=== PATIENT | female | born 1985 | race African-American/Black ===

== ENCOUNTER → 2017-05-10 | Outpatient (CLI) | payer OTHER ==
--- NOTE | 2017-05-10 13:36 | US ---
EXAMINATION TYPE: US OB <=14 wks transvag DATE OF EXAM: 05/10/2017 COMPARISON: NONE CLINICAL HISTORY: O46.91 Bleeding 1st trimester. Bleeding x 1 day with small clots EXAM PERFORMED: OBTA, OBTV EXAM MEASUREMENTS: GESTATIONAL AGE / DATING Physician Established: not established Dates by LMP: (10 weeks/5 days) EDC: 12/01/2017 Dates by First Scan: AUTOMATIC PRESSER Dates by Current Scan for: N/A MATERNAL ANATOMY Uterus: 7.8 x 5.3 x 4.3cm Right Ovary: 3.5 x 3.3 x 3.0cm, 2.9cm complex mass seen, possible corpus luteal versus other etiology Left Ovary: 2.5 x 1.7 x 1.7cm Post CDS / Adnexa: wnl Presence of free fluid: yes, mild within cds GESTATION / SURVEY No IUP seen at this time Endo thickness = 1.1cm Date of LMP: 02/26/2017 Beta HcG (if available): not available IMPRESSION: 1. Complex mass right ovary. 2. Intrauterine not identified. Correlation with beta-hCG and follow-up is recommended. Ect opic is not excluded. 3. Small amount of free fluid within the cul-de-sac.
== END | disposition home or self-care (01) ==
LOC: RADUSWWP 12:46
PROVIDERS: ATTEND Family Medicine
DX: O46.91 Antepartum hemorrhage, unspecified, first trimester (principal); O34.81 Maternal care for other abnormalities of pelvic organs, first trimester; N83.8 Other noninflammatory disorders of ovary, fallopian tube and broad ligament; Z3A.10 10 weeks gestation of pregnancy
CPT/HCPCS: 36415; 76801; 76817; 84702; 86850; 86900; 86901

== ENCOUNTER → 2017-08-30 | Outpatient (CLI) | payer OTHER ==
--- NOTE | 2017-09-02 08:28 | USB ---
Reason for exam: clinical finding. History: Family history of breast cancer in aunt. Indicated problem(s): lump or thickening in the left breast. Physical Findings: Nurse Summary: found lump in left 2 weeks ago, BB on area of concern (nurse kp). US Breast LT Left breast ultrasound includes all four quadrants, the retroareolar region and axilla. Finding demonstrates no cystic or solid lesion seen. These results were verbally communicated with the patient and result sheet given to the patient on 08/30/17. ASSESSMENT: Negative, BI-RAD 1 RECOMMENDATION: Routine screening mammogram of both breasts at age 40. (unless clinical indication to start sooner) Manage on a clinical basis with regard to any suspicious palpable areas.
== END | disposition home or self-care (01) ==
LOC: RADUSWWP 14:48
PROVIDERS: ATTEND Obstetrics & Gynecology
DX: N63.20 Unspecified lump in the left breast, unspecified quadrant (principal); N64.4 Mastodynia

== ENCOUNTER 2018-06-19 12:27 | Emergency (ER) | payer OTHER ==
[2018-06-19] MEDS ORDERED: SODIUM CHLORIDE 0.9% 1,000 ML IV STA (13:00)
--- NOTE | 2018-06-19 13:00 | ED ---
General Adult HPI - General Chief complaint: Arrhythmia/Palpitations Stated complaint: 26 weeks , heart racing and nosebleed Source: patient Mode of arrival: ambulatory Limitations: no limitations - History of Present Illness Initial comments: Dictation was produced using [employer] dictation software. please excuse any grammatical, word or spelling errors. Chief Complaint: 33-year-old -Filipino female who is in her fourth allegedly 26 weeks presents with palpitations, nosebleed and headache. History of Present Illness: He 33-year-old female presents with 1 episode of nosebleed, palpitations and headache. Patient states that she was at home when she began spritzing the symptoms. Says her symptoms began as nosebleed. Passive for couple minutes. Immediately after patient had sensation as her heart was pounding. She doesn't have a headache. She took some Tylenol with improvement of her symptoms. Well. She denies any, patient' s with this . This is her fourth . She states that the bleeding in her nose stopped. The ROS documented in this emergency department record has been reviewed and confirmed by me. Those systems with pertinent positive or negative responses have been documented in the HPI. All other systems are other negative and/or noncontributory. - Related Data Home Medications Medication Instructions Recorded Confirmed Acetaminophen Tab [Tylenol] 650 mg PO Q6HR PRN 06/19/18 06/19/18 Iem-Japu-Bfwuo Acid 1 cap PO HS 06/19/18 06/19/18 [-U Capsule (formulary)] Previous Rx's Medication Instructions Recorded Magnesium Oxide [Mag-Ox] 250 mg PO BID 3 Days #6 tablet 06/19/18 Sodium Chloride [Gann] 1 spray EA NOSTRIL TID #1 bottle 06/19/18 Allergies Allergy/AdvReac Type Severity Reaction Status Date / Time No Known Allergies Allergy Verified 06/19/18 13:02 Review of Systems ROS Statement: Those systems with pertinent positive or pertinent negative responses have been documented in the HPI. ROS Other: All systems not noted in ROS Statement are negative. Past Medical History Past Medical History: No Reported History History of Any Multi-Drug Resistant Organisms: None Reported Past Surgical History: No Surgical Hx Reported Past Psychological History: No Psychological Hx Reported Smoking Status: Never smoker Past Alcohol Use History: None Reported Past Drug Use History: None Reported General Exam - General Exam Comments Initial Comments: PHYSICAL EXAM: General Impression: Alert and oriented x3, not in acute distress HEENT: Normocephalic atraumatic, extra-ocular movements intact, pupils equal and reactive to light bilaterally, mucous membranes moist. Cardiovascular: Heart regular rate and rhythm, S1&S2 audible, no murmurs, rubs or gallops Chest: Lungs clear to auscultation bilaterally, no rhonchi, no wheeze, no rales Abdomen: Bowel sounds present, abdomen soft, non-tender, non-distended, no organomegaly Musculoskeletal: Pulses present and equal in all extremities, no peripheral edema Motor: Power 5/5 bilaterally, no focal deficits noted Neurological: CN II-XII grossly intact, no focal motor or sensory deficits noted Skin: Intact with no visualized rashes Psych: Normal affect and mood Limitations: no limitations Course Vital Signs 06/19/18 06/19/18 06/19/18 12:29 12:52 13:18 Temperature 98 F Pulse Rate 78 72 Pulse Rate [ 78 Physician Office Assistant ] Respiratory 18 16 Rate Blood Pressure 108/69 118/62 O2 Sat by Pulse 100 98 Oximetry 06/19/18 13:27 Temperature 98.7 F Pulse Rate 87 Pulse Rate [ Physician Office Assistant ] Respiratory 19 Rate Blood Pressure 118/67 O2 Sat by Pulse 99 Oximetry Medical Decision Making - Medical Decision Making ED course: 33-year-old female presents with a chief complaint of episode of nosebleed, palpitations and headache. She took a Tylenol with improvement of her symptoms. She is instructed by her TELECOMMUNICATIONS OFFICER to come in for medical evaluation. Vital signs upon arrival are within acceptable limits. EKGs benign. heart tones were performed by L&D nurse. heart rate was approximately 160. EKG Interpretation: A 12 lead EKG was obtained. It was interpreted by myself and attending physician. There is a P wave before every QRS complex. Rate is 73. Rhythm is normal sinus rhythm, MN interval 140, care is 86, QTC 438. QT is not prolonged. No ST segment depression or elevation.. Overall, this EKG is unremarkable Laboratory evaluation was obtained. Patient has a hemoglobin 10.2. Rest of CBC is otherwise unremarkable. Patient did have a platelet count of 102. Metabolic panel is unremarkable. Glucose 112. Magnesium is 1.5. Vital signs are within normal limits. No hypertension. She given some supplemental magnesium. Patient's clinical presentation suspicious for URI. Nosebleed likely anterior nosebleed caused by dry mucosa. Patient given Gann [place] keep the nasal mucosa moist. She is told to avoid fans. Patient also given magnesium oxide tabs to go home with. Patient told to follow-up with her primary care physician. Patient told to return to the emergency department should she have recurrent or persistent headache. Patient understandable agreeable to discharge. - Lab Data Result diagrams: 06/19/18 13:18 06/19/18 13:18 Lab Results 06/19/18 06/19/18 Range/Units :18 13:18 WBC 4.2 (3.8-10.6) k/uL RBC 3.05 L (3.80-5.40) m/uL Hgb 10.2 L (11.4-16.0) gm/dL Hct 30.3 L (34.0-46.0) % MCV 99.2 (80.0-100.0) fL MCH 33.5 (25.0-35.0) pg MCHC 33.7 (31.0-37.0) g/dL RDW 13.4 (11.5-15.5) % Plt Count 102 L (150-450) k/uL Neutrophils % 70 % Lymphocytes % 18 % Monocytes % 8 % Eosinophils % 1 % Basophils % 0 % Neutrophils # 2.9 (1.3-7.7) k/uL Lymphocytes # 0.8 L (1.0-4.8) k/uL Monocytes # 0.3 (0-1.0) k/uL Eosinophils # 0.1 (0-0.7) k/uL Basophils # 0.0 (0-0.2) k/uL Sodium 138 (137-145) mmol/L Potassium 3.6 (3.5-5.1) mmol/L Chloride 108 H (98-107) mmol/L Carbon Dioxide 22 (22-30) mmol/L Anion Gap 8 mmol/L BUN 6 L (7-17) mg/dL Creatinine 0.42 L (0.52-1.04) mg/dL Est GFR (CKD-EPI)AfAm >90 (>60 ml/min/1.73 sqM) Est GFR (CKD-EPI)NonAf >90 (>60 ml/min/1.73 sqM) Glucose 112 H (74-99) mg/dL Calcium 9.0 (8.4-10.2) mg/dL Magnesium 1.5 L (1.6-2.3) mg/dL Disposition Clinical Impression: Epistaxis Disposition: HOME SELF-CARE Condition: Good Instructions: Nosebleed (ED) Prescriptions: Magnesium Oxide [Mag-Ox] 250 mg PO BID 3 Days #6 tablet Sodium Chloride [Gann] 1 spray EA NOSTRIL TID #1 bottle Is patient prescribed a controlled substance at d/c from ED?: No Referrals: Melva Farley DO [Primary Care Provider] - 1-2 days Time of Disposition: 13:45
[2018-06-19 13:28] VITALS: BP 118/67; PULSE 87; RESP 19; TEMP 98.7
[2018-06-19 13:28] LABS: Basophils % (A) 0 %; Eosinophils # (A) 0.1 k/uL (0-0.7); Eosinophils % (A) 1 %; HCT 30.3 % (34.0-46.0); HGB 10.2 gm/dL (11.4-16.0); Lymphocytes # (A) 0.8 k/uL (1.0-4.8); Lymphocytes % (A) 18 %; MCH 33.5 pg (25.0-35.0); MCHC 33.7 g/dL (31.0-37.0); MCV 99.2 fL (80.0-100.0); Mean Platelet Volume 8.2; Monocytes # (A) 0.3 k/uL (0-1.0); Monocytes % (A) 8 %; Neutrophils # (A) 2.9 k/uL (1.3-7.7); Neutrophils % (A) 70 %; Platelet Count 102 k/uL (150-450); RBC 3.05 m/uL (3.80-5.40); RDW 13.4 % (11.5-15.5); WBC 4.2 k/uL (3.8-10.6)
[2018-06-19 13:35] LABS: Anion Gap 8 mmol/L; Blood Urea Nitrogen 6 mg/dL (7-17); Carbon Dioxide 22 mmol/L (22-30); Chloride 108 mmol/L (98-107); Glucose 112 mg/dL (74-99); Magnesium 1.5 mg/dL (1.6-2.3); Potassium 3.6 mmol/L (3.5-5.1); Sodium 138 mmol/L (137-145)
[2018-06-19] MEDS ORDERED: MAGNESIUM OXIDE 400 MG TAB PO STA (13:38)
== END 2018-06-19 13:56 | disposition home or self-care (01) ==
LOC: EC 12:27
DX: O99.89 Other specified diseases and conditions complicating pregnancy, childbirth and the puerperium (principal); R04.0 Epistaxis; R00.2 Palpitations; R51 Headache; Z3A.26 26 weeks gestation of pregnancy
CPT/HCPCS: 36415; 80048; 83735; 85025; 93005; 96360; 99285

== ENCOUNTER → 2018-07-01 | Outpatient (CLI) | payer OTHER ==
[~2018-07-01] MED LIST: AMPICILLIN 2,000 MG in SODIUM CHLORIDE 0.9% 100 ML IVPB STA; BETAMET ACET-BETAMETH SOD PHOS 6 MG/ML VIAL IM SCH; CALCIUM CHLORIDE 500 MG in SODIUM CHLORIDE 0.9% 50 ML IVPB ONE; INDOMETHACIN 25 MG CAP PO SCH; MAGNESIUM SULFATE-WATER PMX 20 GM in WATER FOR INJECTION 1 500ML.BAG IV SCH; MAGNESIUM SULFATE-WATER PMX 4 GM in WATER FOR INJECTION 1 50ML.BAG IVPB STA
[2018-07-01 21:47] VITALS: BP 126/66; PULSE 71; RESP 16; TEMP 97.9
[2018-07-01 21:55] LABS: Amorphous Sediment,Urine Few /hpf; Appearance,Urine Cloudy (Clear); Bilirubin,Urine Negative (Negative); Blood,Urine Negative (Negative); Color,Urine Light Yellow; Glucose,Urine (UA) Negative (Negative); Ketones,Urine Negative (Negative); Leukocyte Esterase,Urine Negative (Negative); Mucus,Urine Rare /hpf; Nitrite,Urine Negative (Negative); PH, Urine 6.5 (5.0-8.0); Protein,Urine Negative (Negative); Squamous Epithelial Cell,Urine 2 /hpf (0-4); Urobilinogen,Urine <2.0 mg/dL (<2.0)
[2018-07-01] MEDS: LACTATED RINGERS 1,000 ML IV SCH (22:00)
--- NOTE | 2018-07-01 23:26 | US ---
EXAMINATION TYPE: US OB >= 14 wk fetus DATE OF EXAM: 07/01/2018 COMPARISON: None CLINICAL HISTORY: 27 weeks Contractions pre term labor. TECHNIQUE: Transabdominal (TA) GESTATIONAL AGE / DATING Physician Established: (27 weeks/6 days) EDC: 09/24/2018 Dates by LMP: (27 weeks/6 days) EDC: 09/24/2018 Dates by First Scan: No previous this is first scan Dates by Current Scan: (30 weeks/1 days) EDC: 09/08/2018 SURVEY IUP: Single PLACENTA: Posterior PREVIA: No Previa ORIANA: 14.32 cm Normal CERVICAL LENGTH (transabdominal: norm > 3.0cm): 3.4 cm BIOMETRY PRESENTATION: Vertex LIE: Longitudinal BPD: 7.82 cm 31 weeks / 3 days HC: 28.58 cm 31 weeks / 3 days AC: 25.74 cm 29 weeks / 6 days FL: 5.70 cm 29 weeks / 6 days ESTIMATED WEIGHT IN GRAMS: 1521 grams ESTIMATED WEIGHT IN LBS/OZ: 3 lbs. 6 oz. WEIGHT PERCENTAGE BASED ON ESTABLISHED DATES: 97% HC/AC: 1.11cm Normal FL/AC: 22.15cm Normal HEART RATE: 142 bpm RHYTHM: Normal I see no complicating process. IMPRESSION: The estimated weight is 1521 g. I have no old exam to compare. Ultrasound gestational age is 30 weeks and 1 day. The DIANA is 09/08/2018. No complicating process.
[2018-07-02] MEDS: LACTATED RINGERS 1,000 ML IV SCH (00:10)
--- NOTE | 2018-07-02 00:35 | P.TRANS ---
Providers Expected date of discharge: 07/02/18 Attending physician: Yovani Sampson Primary care physician: Stated None Hospital Course: Hannah is a 33-year-old at 27 weeks gestation who arrives complaining of contractions. She is been followed with both myself and maternal medicine for history of labor and she has been on progesterone injections. She was seen by at [facility] approximately for 5 days ago and was told that her cervix was closed and 40% effaced. Tonight she reports that approximately 6:30 she began having some back pain and while she didn't think too much of it the pain became more intense and at 9:00 she came into labor and delivery. At that time she was dilated to approximately 2 cm 80% effaced and ballotable. A fibronectin was ordered and returned positive. I did come in prior to the labs returning to do a full assessment. Her vital signs are otherwise stable and she is afebrile. Immediately upon recognition of labor and IV was started and magnesium sulfate was initiated with a bolus of 4 g and a maintenance dose of 2 g per hour. She also received a dose of Celestone and a dose of IV antibiotics. Since the contractions were not immediately stopping the dose of Indocin 50 mg by mouth was provided as well. Contractions have decreased over the last hour to hour and a half since she's been here. Due to her severe prematurity we did speak with [facility] about a transfer. The goal will be to try and transfer her to a tertiary care center as her hospitals not equipped for a 27 week baby. Risks of transfer were reviewed with the patient. We have had her here now for 3 hours and she is made no cervical record changer tester that time and if we can continue to get her contractions spaced out than the plan will be to do the transfer. Until such time that her contractions are spaced out it makes it difficult to try and tying a transfer due to risk of delivery and route. She does have a category 1 tracing otherwise. Her contractions recently have been anywhere from 4-30 minutes apart. Patient Condition at Discharge: Stable Plan - Transfer Summary Transfer Medications: Active Medications Generic Name Dose Route Start Last Admin Trade Name Freq PRN Reason Stop Dose Admin Betamethasone Acet/Betameth SodPhos 12 mg 07/01/18 22:15 07/01/18 22:28 Celestone Soluspan IM 07/02/18 22:16 12 mg Q24H NICO Administration Lactated Ringer's 1,000 mls @ 999 mls/hr 07/01/18 21:45 07/02/18 00:10 Lactated Ringers IV Not Given .Q1H1M NICO Magnesium Sulfate 20 gm/ IV 500 mls @ 50 mls/hr 07/01/18 22:15 07/01/18 22:47 Solution IV 2 gm/hr .Q10H NICO 50 mls/hr Administration 2 GM/HR Indomethacin 50 mg 07/02/18 00:00 07/01/18 23:44 Indocin PO 50 mg QID NICO Administration - Out of Hospital Transfer - Req. Specs Out of Hospital Transfer - Requested Specifics: Neurological ICU
[2018-07-02 01:12] LABS: Basophils % (A) 0 %; Eosinophils % (A) 0 %; HCT 31.8 % (34.0-46.0); HGB 10.7 gm/dL (11.4-16.0); Lymphocytes # (A) 1.1 k/uL (1.0-4.8); Lymphocytes % (A) 21 %; MCH 34.9 pg (25.0-35.0); MCHC 33.7 g/dL (31.0-37.0); MCV 103.5 fL (80.0-100.0); Macrocytosis Slight; Mean Platelet Volume 7.5; Monocytes # (A) 0.2 k/uL (0-1.0); Monocytes % (A) 5 %; Neutrophils # (A) 3.8 k/uL (1.3-7.7); Neutrophils % (A) 73 %; Platelet Count 104 k/uL (150-450); RBC 3.07 m/uL (3.80-5.40); WBC 5.2 k/uL (3.8-10.6)
== END | disposition home or self-care (01) ==
LOC: FBPOP 20:55
PROVIDERS: ATTEND Obstetrics & Gynecology
DX: O60.03 Preterm labor without delivery, third trimester (principal); Z3A.30 30 weeks gestation of pregnancy
CPT/HCPCS: 82731; 81001; 76805; J0702; J3475 ×2; J0290; 83735; 85025; 96361; 96365; 96366; 96367; 99215

== ENCOUNTER 2018-07-15 18:37 | Outpatient (CLI) | payer OTHER ==
--- NOTE | 2018-08-07 13:01 | P.MSEPDOC ---
Presenting Problems - Arrival Data Date of Arrival on Unit: 07/15/18 Time of Arrival on Unit: 18:30 Mode of Transport: Ambulatory Disposition - Disposition Discharge Date: 07/15/18 Discharge Time: 21:15 I agree with the RN Medical Screening Exam: Yes Risk & Benefit of care provided described in d/c instruction: Yes Diagnosis: FALSE LABOR BEFORE 37 COMPLETED WEEKS OF GEST, THIRD TRI
== END 2018-07-15 21:15 | disposition home or self-care (01) ==
LOC: FBPOP 18:37
PROVIDERS: ATTEND Obstetrics & Gynecology
DX: O47.03 False labor before 37 completed weeks of gestation, third trimester (principal); Z3A.00 Weeks of gestation of pregnancy not specified
CPT/HCPCS: 59025; G0463; 99213

== ENCOUNTER 2018-07-22 16:18 | Outpatient (CLI) | payer OTHER ==
[2018-07-22 18:08] VITALS: BP 121/66; PULSE 76; RESP 15; TEMP 97.2
--- NOTE | 2018-08-08 08:49 | P.MSEPDOC ---
Presenting Problems - Arrival Data Date of Arrival on Unit: 07/22/18 Time of Arrival on Unit: 16:30 Mode of Transport: Ambulatory Vital Signs - Temperature Temperature: 97.2 F Temperature Source: Temporal Artery Scan - Pulse Brachial Pulse Rate: 76 Pulse Assessment Method: Automatic Cuff - Respirations Respiratory Rate: 15 Oxygen Delivery Method: Room Air - Blood Pressure Right Arm Sitting Blood Pressure: 121/66 Blood Pressure Mean: 84 Blood Pressure Source: Automatic Cuff Medical Screen Scoring (Post) - Cervical Exam Dilation: Exam Deferred Effacement: Exam Deferred Membranes: Intact - Uterine Contractions Frequency: N/A Duration: N/A Intensity: N/A - Maternal Vital Signs Maternal Temperature: N/A Maternal Blood Pressure: N/A Signs of Preeclampsia: N/A Maternal Respirations: N/A - Pain Assessment Pain Scale Used: Numeric (1 - 10) Pain Intensity: 0 - Assessment Heart Rate: 135 Heart Rate - NICHD Category: Category I (Normal) = 0 NST: Reactive Position: N/A Station: N/A - Total Score Total Score (Post): 0 - Post Treatment Level of Risk Post Treatment Level of Risk: Low (0-5) Physician Notification (Post) - Physician Notified Physician Notified Date: 07/22/18 Physician Notified Time: 17:05 Spoke With: Dr Sampson New Order Received: Yes - Notification Comment Comment: reported reactive NST. pt may go home per vagueda Sampson Disposition - Disposition OB Disposition: Triage Discharge Date: 07/22/18 Discharge Time: 17:10 I agree with the RN Medical Screening Exam: Yes Risk & Benefit of care provided described in d/c instruction: Yes Diagnosis: RELATED CONDITIONS, UNSPECIFIED, THIRD TRIMESTER
== END 2018-07-22 17:10 | disposition home or self-care (01) ==
LOC: FBPOP 16:18
PROVIDERS: ATTEND Obstetrics & Gynecology
DX: O26.93 Pregnancy related conditions, unspecified, third trimester (principal); Z3A.00 Weeks of gestation of pregnancy not specified
CPT/HCPCS: 59025; G0463; 99213

== ENCOUNTER 2018-08-30 08:21 | Inpatient (IN) | payer OTHER ==
[2018-08-30] MEDS ORDERED: LIDOCAINE 0.5% (PF) 5 MG/ML (50 ML SDV) SQ PRN (08:40)
[2018-08-30] MEDS ORDERED: OXYTOCIN 10 UNIT/ML 1 ML VIAL IM PRN (08:40)
[2018-08-30] MEDS ORDERED: METHYLERGONOVINE 0.2 MG/ML 1 ML AMP IM PRN (08:40)
[2018-08-30] MEDS ORDERED: TERBUTALINE 1 MG/ML VIAL SQ PRN (08:40)
[2018-08-30] MEDS ORDERED: CARBOPROST TROMETHAMINE 250 MCG/ML 1 ML AMP IM PRN (08:40)
[2018-08-30] MEDS ORDERED: OXYTOCIN 20 UNITS/1000 ML NS 1,000 ML IV SCH (08:45)
[2018-08-30] MEDS ORDERED: LACTATED RINGERS 1,000 ML IV SCH (08:45)
[2018-08-30 10:30] LABS: Basophils % (A) 0 %; Eosinophils # (A) 0.1 k/uL (0-0.7); Eosinophils % (A) 1 %; HCT 32.8 % (34.0-46.0); HGB 11.2 gm/dL (11.4-16.0); Lymphocytes # (A) 1.1 k/uL (1.0-4.8); Lymphocytes % (A) 32 %; MCH 33.7 pg (25.0-35.0); MCHC 34.2 g/dL (31.0-37.0); MCV 98.7 fL (80.0-100.0); Mean Platelet Volume 8.1; Monocytes # (A) 0.3 k/uL (0-1.0); Monocytes % (A) 8 %; Neutrophils # (A) 1.9 k/uL (1.3-7.7); Neutrophils % (A) 55 %; Platelet Count 100 k/uL (150-450); RBC 3.32 m/uL (3.80-5.40); RDW 12.6 % (11.5-15.5); WBC 3.4 k/uL (3.8-10.6)
--- NOTE | 2018-08-30 11:32 | P.HPOB ---
History of Present Illness H&P Date: 08/30/18 Chief Complaint: Spontaneous rupture of membranes This is a 33-year-old female 6 para 3 with an estimated date of confinement of 09/24/2018, estimated gestational age of 36-3/7 weeks, who presents to labor and delivery with spontaneous rupture of membranes approximate 7 AM this morning with clear fluid noted. She has been feeling irregular contractions since that time. care has been with Dr. Sampson and has been uncomplicated by labor. She was admitted to maternal medicine for 5 days a few weeks ago. She was given steroids and has been on progesterone injections up until a week ago. She also has a history of low platelets but has not needed any intervention for that. She also has a history of placenta previa that has resolved. labs: GC/chlamydia-negative Hepatitis B surface antigen-negative RPR-nonreactive Rubella-immune Blood type-O+ Antibody screen-negative HIV-nonreactive Hemoglobin-12.1 Toxoplasma-negative Random glucose-89 Group B streptococcus-negative Obstetrical history: . History of 3 vaginal deliveries. History of 1 delivery at 34 weeks and 2 deliveries at term. She also has a history of 2 miscarriages. Review of Systems Constitutional: Denies chills, Denies fever Eyes: denies blurred vision, denies pain Ears, nose, mouth and throat: Denies headache, Denies sore throat Cardiovascular: Denies chest pain, Denies shortness of breath Respiratory: Denies cough Gastrointestinal: Reports abdominal pain (Contractions) Genitourinary: Reports pelvic pain, Reports Musculoskeletal: Reports low back pain Integumentary: Denies pruritus, Denies rash Neurological: Denies numbness, Denies weakness Past Medical History Additional Past Medical History / Comment(s): Thrombocytopenia during this History of Any Multi-Drug Resistant Organisms: None Reported Past Surgical History: No Surgical Hx Reported Past Anesthesia/Blood Transfusion Reactions: No Reported Reaction Past Psychological History: No Psychological Hx Reported Smoking Status: Former smoker Past Alcohol Use History: None Reported Past Drug Use History: None Reported - Past Family History Mother Family Medical History: No Reported History Medications and Allergies Home Medications Medication Instructions Recorded Confirmed Type Sqd-[id number]-[id number] Acid 1 cap PO HS 06/19/18 08/30/18 History [-U Capsule (formulary)] Allergies Allergy/AdvReac Type Severity Reaction Status Date / Time No Known Allergies Allergy Verified 08/30/18 08:40 Exam Osteopathic Statement: *. No significant issues noted on an osteopathic structural exam other than those noted in the History and Physical/Consult. Vital Signs Temp Pulse Resp BP 08/30/18 08:39 97.1 F L 64 16 125/72 Intake and Output 08/29/18 08/30/18 08/30/18 22:59 06:59 14:59 Other: Weight 92.079 kg HEENT: Within normal limits Heart: Regular rate and rhythm Lungs: Clear to auscultation bilaterally Abdomen: Cervix: Positive clear fluid with positive amnisure. Cervix initially was 4-1/ 2 cm/80%/-2 station heart tones: Reactive Contractions: Every 2-4 minutes Extremities: Negative Homans Results Result Diagrams: 08/30/18 09:19 Abnormal Lab Results - Last 24 Hours (Table) 08/30/18 Range/Units 09:19 WBC 3.4 L (3.8-10.6) k/uL RBC 3.32 L (3.80-5.40) m/uL Hgb 11.2 L (11.4-16.0) gm/dL Hct 32.8 L (34.0-46.0) % Plt Count 100 L (150-450) k/uL Assessment and Plan (1) 36 weeks gestation of Current Visit: Yes Status: Acute Code(s): Z3A.36 - 36 WEEKS GESTATION OF SNOMED Code(s): 71852353 (2) labor in third trimester with delivery Current Visit: Yes Status: Acute Code(s): O60.14X0 - LABOR THIRD TRI W DELIVERY THIRD TRI, UNSP SNOMED Code(s): 3419745 Plan: Admission for active labor. Expectant management.
--- NOTE | 2018-08-30 12:57 | P.PROBDLV ---
Vaginal Delivery Note - . Vaginal Delivery Note: The patient progressed to complete dilation after spontaneous rupture of membranes and active labor. She did not receive anything for pain. Once reaching complete dilation, she began pushing. 's head came to a crown. One further push, the 's head delivered across the perineum followed by the anterior shoulder. Nose and mouth were bulb suctioned at the perineum. With one further push the remainder the easily delivered with reducing nuchal cord times one around the body with delivery. was placed on mother's abdomen and cord was clamped and cut. A viable male was noted with scores of 9 at 1 minute and 9 at 5 minutes. weight is pending at this time. Placenta delivered shortly thereafter, intact, with a three-vessel cord. Cord blood was obtained secondary to O+ blood type. Uterus contracted fairly well after oxytocin was given and uterine massage was carried out. Inspection of the perineum revealed a small second-degree perineal laceration. This area was anesthetized with 1% lidocaine and then sutured with 3-0 Vicryl suture in the usual multilayer fashion. Estimated blood loss is approximately 200 mL's. Both mother and infant are in stable condition.
[2018-08-30] MEDS ORDERED: diphenhydrAMINE 25 MG CAP PO PRN (13:41)
[2018-08-30] MEDS ORDERED: SIMETHICONE 80 MG CHEWABLE PO PRN (13:41)
[2018-08-30] MEDS ORDERED: HYDROCORTISONE 2.5% RECTAL CREAM 30 GM TUBE RECTAL PRN (13:41)
[2018-08-30] MEDS ORDERED: diphenhydrAMINE 50 MG CAP PO PRN (13:41)
[2018-08-30] MEDS ORDERED: WITCH HAZEL 1 EACH MED..PAD TOPICAL PRN (13:41)
[2018-08-30] MEDS ORDERED: LANOLIN CREAM 5 GM TUBE TOPICAL PRN (13:41)
[2018-08-30] MEDS ORDERED: diphenhydrAMINE 50 MG/ML 1 ML VIAL IVP PRN ×2 (13:41)
[2018-08-30] MEDS ORDERED: BENZOCAINE/MENTHOL SPRAY 1 GM/SPRAY AEROSOL TOPICAL PRN (13:41)
[2018-08-30] MEDS ORDERED: ZOLPIDEM 5 MG TAB PO PRN (13:41)
[2018-08-30] MEDS: IBUPROFEN 600 MG TAB PO PRN ×2 (14:10→20:25)
[2018-08-30] MEDS: ACETAMINOPHEN TAB 325 MG TAB PO PRN ×2 (18:52→22:33)
[2018-08-30] MEDS: SENNOSIDES-DOCUSATE SODIUM 1 EACH TAB PO SCH (20:25)
[2018-08-31] MEDS: IBUPROFEN 600 MG TAB PO PRN ×3 (04:13→22:38)
[2018-08-31 07:07] LABS: Basophils % (A) 0 %; Eosinophils # (A) 0.1 k/uL (0-0.7); Eosinophils % (A) 1 %; HCT 29.5 % (34.0-46.0); HGB 9.9 gm/dL (11.4-16.0); Lymphocytes # (A) 1.5 k/uL (1.0-4.8); Lymphocytes % (A) 22 %; MCHC 33.7 g/dL (31.0-37.0); MCV 100.8 fL (80.0-100.0); Mean Platelet Volume 8.1; Monocytes # (A) 0.6 k/uL (0-1.0); Monocytes % (A) 9 %; Neutrophils # (A) 4.4 k/uL (1.3-7.7); Neutrophils % (A) 65 %; RBC 2.93 m/uL (3.80-5.40); RDW 12.8 % (11.5-15.5); WBC 6.7 k/uL (3.8-10.6)
[2018-08-31 07:26] LABS: Platelet Count 86 k/uL (150-450)
[2018-08-31] MEDS: ACETAMINOPHEN TAB 325 MG TAB PO PRN (08:04)
[2018-08-31] MEDS: SENNOSIDES-DOCUSATE SODIUM 1 EACH TAB PO SCH ×2 (08:04→19:57)
--- NOTE | 2018-08-31 12:45 | P.PNOBGVD ---
Subjective - Subjective Principal diagnosis: Status post vaginal delivery day #1 Interval history: She is doing well. Her lochia is decreasing. Her pain is fairly well controlled with oral pain medication. She is breast-feeding. Patient reports: Reports appetite normal, Reports voiding normally, Reports pain well controlled, Reports ambulating normally [place]: doing well, nursing well Objective - Latest Vital Signs Latest vital signs: Vital Signs Temp Pulse Resp BP Pulse Ox 08/31/18 08:00 98.1 F 61 14 106/68 08/31/18 00:00 98 F 71 15 113/63 98 08/30/18 20:00 98 F 69 15 121/76 08/30/18 15:41 96.9 F L 73 16 115/59 08/30/18 15:00 97.6 F 67 16 110/60 08/30/18 14:30 70 14 122/72 08/30/18 13:58 75 14 118/73 08/30/18 13:42 64 16 110/69 08/30/18 13:30 69 16 115/73 08/30/18 13:12 80 16 111/68 08/30/18 13:00 97.1 F L 69 16 111/78 Intake and Output 08/30/18 08/31/18 08/31/18 22:59 06:59 14:59 Other: # Voids 1 - Exam Extremities: Present: normal. Absent: tenderness Abdomen: Present: normal appearance, soft. Absent: distention, tenderness Uterus: Present: normal, firm. Absent: tenderness - Labs Labs: Abnormal Lab Results - Last 24 Hours (Table) 08/31/18 Range/Units 06:47 RBC 2.93 L (3.80-5.40) m/uL Hgb 9.9 L (11.4-16.0) gm/dL Hct 29.5 L (34.0-46.0) % MCV 100.8 H (80.0-100.0) fL Plt Count 86 L (150-450) k/uL Assessment and Plan Assessment: Status post vaginal delivery day #1 (1) 36 weeks gestation of Current Visit: Yes Status: Acute Code(s): Z3A.36 - 36 WEEKS GESTATION OF SNOMED Code(s): 62038948 (2) labor in third trimester with delivery Current Visit: Yes Status: Acute Code(s): O60.14X0 - LABOR THIRD TRI W DELIVERY THIRD TRI, UNSP SNOMED Code(s): 7017377 Plan: Will continue with care today since baby does need to stay 1 more day per pediatrics. Anticipate discharge home tomorrow.
[2018-09-01] MEDS: IBUPROFEN 600 MG TAB PO PRN ×2 (06:32→19:38)
[2018-09-01] MEDS: SENNOSIDES-DOCUSATE SODIUM 1 EACH TAB PO SCH ×2 (08:00→21:22)
--- NOTE | 2018-09-01 08:40 | P.DS ---
Providers Date of admission: 08/30/18 08:21 Expected date of discharge: 09/01/18 Attending physician: Yovani Sampson Primary care physician: Stated None Hospital Course: Patient is doing very well post day 2. She is ambulating, voiding, and she is tolerating her diet. She voices no complaints. Vital signs are stable and afebrile. Heart regular, lungs clear, extremities without pain. Abdomen is soft uterus is firm and lochia is reported be light. Assessment post day 2. Plan discharged home follow up with me in 6 weeks. Prescription for Motrin and a breast pump were provided. Patient Condition at Discharge: Good Plan - Discharge Summary Discharge Rx Participant: No New Discharge Prescriptions: New Ibuprofen [Motrin] 600 mg PO Q6HR PRN #30 tab PRN Reason: Pain No Action [id number] Acid [-U Capsule (formulary)] 1 cap PO HS Discharge Medication List [id number]-Shjz-Notpw Acid [-U Capsule (formulary)] 1 cap PO HS [History] Ibuprofen [Motrin] 600 mg PO Q6HR PRN #30 tab 09/01/18 [Rx] Follow up Appointment(s)/Referral(s): Yovani Sampson DO [Doctor of Osteopathic Medicine] - 6 Weeks Activity/Diet/Wound Care/Special Instructions: No heavy lifting, limit stairs and driving, and pelvic rest. If any high temperatures, heavy bleeding, or severe pain call my office Discharge Disposition: HOME SELF-CARE
[2018-09-01] MEDS: ACETAMINOPHEN TAB 325 MG TAB PO PRN (10:35)
[2018-09-01 11:24] VITALS: RESP 18
[2018-09-01 14:01] VITALS: BMI 34.8
[2018-09-01 17:15] VITALS: BP 117/69; PULSE 72; TEMP 98.7
== END 2018-09-01 21:10 | disposition home or self-care (01) | DRG 806 ==
LOC: 4FBP 08:21
PROVIDERS: ADMIT Obstetrics & Gynecology; ATTEND Obstetrics & Gynecology
PROC: 10E0XZZ Delivery of Products of Conception, External Approach (ICD-10-PCS; principal; 2018-08-30)
PROC: 0KQM0ZZ Repair Perineum Muscle, Open Approach (ICD-10-PCS; 2018-08-30)
DX: O60.14X0 Preterm labor third trimester with preterm delivery third trimester, not applicable or unspecified (principal); O44.02 Complete placenta previa NOS or without hemorrhage, second trimester; Z37.0 Single live birth; Z3A.36 36 weeks gestation of pregnancy; O69.81X0 Labor and delivery complicated by cord around neck, without compression, not applicable or unspecified; O70.1 Second degree perineal laceration during delivery; Z87.891 Personal history of nicotine dependence; Z83.3 Family history of diabetes mellitus; Z82.49 Family history of ischemic heart disease and other diseases of the circulatory system; Z82.0 Family history of epilepsy and other diseases of the nervous system
CPT/HCPCS: 85025; 86850; 86900; 86901; 88307

== ENCOUNTER → 2019-11-25 | Outpatient (CLI) | payer MEDICAID ==
--- NOTE | 2019-11-25 08:53 | US ---
EXAMINATION TYPE: US pelvic complete DATE OF EXAM: 11/25/2019 COMPARISON: NONE CLINICAL HISTORY: R10.2 pelvic pain. Patient feels pressure in her pelvis TECHNIQUE: TA. Transabdominal sonographic images of the pelvis were acquired. Date of LMP: 11/18/2019 EXAM MEASUREMENTS: Uterus: 9.2 x 5.0 x 3.7 cm Endometrial Stripe: 0.8 cm Right Ovary: 2.1 x 2.4 x 2.0 cm Left Ovary: 3.2 x 2.2 x 2.3 cm 1. Uterus: Anteverted wnl 2. Endometrium: wnl 3. Right Ovary: follicles seen 4. Left Ovary: 2.0cm simple appearing cyst 5. Bilateral Adnexa: wnl 6. Posterior cul-de-sac: wnl Urinary bladder is sonolucent. Posterior wall is normal. IMPRESSION: 1. Left renal cyst. Follow-up in 6 weeks or following the next normal menstrual period is recommended .
== END | disposition home or self-care (01) ==
LOC: RADUSWWP 08:07
PROVIDERS: ATTEND Obstetrics & Gynecology
DX: N28.1 Cyst of kidney, acquired (principal)
CPT/HCPCS: 76856

== ENCOUNTER → 2020-05-11 | Outpatient (CLI) | payer MEDICAID, OTHER ==
--- NOTE | 2020-05-11 15:33 | US ---
EXAMINATION TYPE: Transabdominal DATE OF EXAM: 05/11/2020 12:58 PM COMPARISON: NONE CLINICAL HISTORY: Z36 Confirm dates. EXAM PERFORMED: Transabdominal (TA) EXAM MEASUREMENTS: GESTATIONAL AGE / DATING Physician Established: Not yet established ( weeks/ days) EDC: Dates by LMP: (3 weeks/2 days) EDC: 01/23/2021 Dates by First Scan: No previous. Dates by Current Scan for: (7 weeks/0 days) EDC: 12/28/2020 MATERNAL ANATOMY Uterus: 9.7 x 6.9 x 5.9cm Right Ovary: 2.0 x 1.5 x 1.4cm Left Ovary: 3.2 x 2.3 x 2.1cm Post CDS / Adnexa: small amount of free fluid in posterior cul de sac = 1.6 x 0.4 x 0.4cm Presence of free fluid: no Presence of corpus luteal cyst: in left ovary = 1.3 x 0.9 x 1.1cm Presence of subchorionic bleed: yes, small amount of free fluid is seen subchorionically = 2.4 x 2.3 x 1.2cm. GESTATION / SURVEY CRL: 0.9cm (7 weeks/0 days) Yolk Sac (normal less than 6mm): 3.4mm Heart Rate: 142 bpm Rhythm: Normal IUP: Single, IUP Date of LMP: 04/18/2020 Beta HcG (if available): NA Single, live IUP, 7 weeks/0 days, EDC: 12/28/2020, HR 142bpm; presence of small subchorionic bleed. IMPRESSION: 1. Single Judet gestation estimated at 7 weeks 0 days gestation based on the crown-rump length. Cardi ac activity measures 142 bpm. 2. Subchorionic hemorrhage measuring 2.4 x 2.3 x 1.2 cm.
== END | disposition home or self-care (01) ==
LOC: RADUSWWP 12:18
PROVIDERS: ATTEND Obstetrics & Gynecology
DX: Z36.89 Encounter for other specified antenatal screening (principal); O20.9 Hemorrhage in early pregnancy, unspecified; Z3A.01 Less than 8 weeks gestation of pregnancy
CPT/HCPCS: 76801

== ENCOUNTER → 2020-05-19 | Outpatient (CLI) | payer MEDICAID, OTHER ==
[2020-05-19 14:55] LABS: HCT 35.5 % (34.0-46.0); HGB 11.5 gm/dL (11.4-16.0); MCHC 32.4 g/dL (31.0-37.0); MCV 98.7 fL (80.0-100.0); Mean Platelet Volume 8.2; Platelet Count 149 k/uL (150-450); RDW 12.2 % (11.5-15.5); WBC 4.3 k/uL (3.8-10.6)
[2020-05-19 19:03] LABS: African American GFR (CKD) 138.8 (60.0-200.0); Non-African American GFR(CKD) 119.8 (60.0-200.0)
[2020-05-19 19:36] LABS: Hepatitis B Surface Antigen Non-Reactive (Non-Reactive)
[2020-05-19 20:23] LABS: HIV 2 AB Non-Reactive (Non-Reactive); HIV AB P24 Non-Reactive (Non-Reactive); HIV P24 AG Non-Reactive (Non-Reactive)
== END | disposition home or self-care (01) ==
LOC: LABWHC1 14:32
PROVIDERS: ATTEND Obstetrics & Gynecology
DX: Z34.81 Encounter for supervision of other normal pregnancy, first trimester (principal); Z3A.00 Weeks of gestation of pregnancy not specified
CPT/HCPCS: 36415; 82565; 82947; 85027; 86762; 86780; 86850; 86900; 86901; 87340; 87390

== ENCOUNTER → 2020-08-01 | Outpatient (CLI) | payer MEDICAID, OTHER ==
[2020-08-02 11:46] LABS: Alpha Fetoprotein 91.9 ng/mL; Alpha Fetoprotein (M.O.M) 2.26; B-HCG (M.O.M.) 2.45; Gestational Age (days) 5; Human Chorionic Gonadotropin 53.1 IU/mL; Inhibin A (M.O.M.) 0.72; Interpretation SeeBelow; Maternal Age at EDD (Yrs) 33; Smoker No; Unconjugated Estriol (M.O.M.) 0.92
== END | disposition home or self-care (01) ==
LOC: LABWHC1 10:04
PROVIDERS: ATTEND Obstetrics & Gynecology
DX: Z34.82 Encounter for supervision of other normal pregnancy, second trimester (principal)
CPT/HCPCS: 36415; 82105; 82677; 84702; 86336

== ENCOUNTER → 2020-10-04 | Outpatient (CLI) | payer MEDICAID, OTHER ==
[2020-10-04 12:10] LABS: HCT 34.6 % (34.0-46.0); HGB 11.5 gm/dL (11.4-16.0); MCH 34.2 pg (25.0-35.0); MCHC 33.3 g/dL (31.0-37.0); MCV 102.9 fL (80.0-100.0); Macrocytosis Slight; Platelet Count 135 k/uL (150-450); RBC 3.36 m/uL (3.80-5.40); RDW 13.5 % (11.5-15.5); WBC 5.2 k/uL (3.8-10.6)
== END | disposition home or self-care (01) ==
LOC: LABWHC1 10:17
PROVIDERS: ATTEND Obstetrics & Gynecology
DX: Z34.82 Encounter for supervision of other normal pregnancy, second trimester (principal)
CPT/HCPCS: 36415; 82950; 85027

== ENCOUNTER → 2020-10-10 | Outpatient (CLI) | payer MEDICAID, OTHER ==
[2020-10-10 12:14] LABS: Glucose 3 Hour, Gest 99 mg/dL
== END | disposition home or self-care (01) ==
LOC: LABWHC1 07:37
PROVIDERS: ATTEND Obstetrics & Gynecology
DX: O99.810 Abnormal glucose complicating pregnancy (principal); Z3A.00 Weeks of gestation of pregnancy not specified
CPT/HCPCS: 36415; 82951; 82952

== ENCOUNTER 2020-10-31 18:07 | Outpatient (CLI) | payer MEDICAID, OTHER ==
[2020-10-31 19:27] VITALS: BP 126/73; PULSE 77; RESP 16; TEMP 97.6
--- NOTE | 2020-11-01 05:07 | P.MSEPDOC ---
Presenting Problems - Arrival Data Date of Arrival on Unit: 10/31/20 Time of Arrival on Unit: 18:07 Mode of Transport: Ambulatory - Complaint OB-Reason for Admission/Chief Complaint: Possible Onset of Labor Comment: patient came n to triage stating she has been ashleigh since she has seen Dr. Sampson earlier today. Patient states that she has a history of labor with all of her other pregnancies. Medical History - Information : 5 Para: 4 Term: 0 : 4 Abortions: Spontaneous or Elective: 0 Number of Living Children: 4 - Gestational Age Gestational Age by DIANA (wks/days): 31 Weeks and 5 Days Review of Systems - Review of Systems Constitutional: No problems Breast: No problems ENT: No problems Cardiovascular: No problems Respiratory: No problems Gastrointestinal: No problems Genitourinary: No problems Musculoskeletal: No problems Neurological: No problems Skin: No problems Vital Signs - Temperature Temperature: 97.6 F Temperature Source: Temporal Artery Scan - Pulse Right Brachial Pulse Rate: 77 Pulse Assessment Method: Automatic Cuff - Respirations Respiratory Rate: 16 Oxygen Delivery Method: Room Air - Blood Pressure Right Arm Blood Pressure: 126/73 Blood Pressure Mean: 90 Blood Pressure Source: Automatic Cuff Medical Screen Scoring (Pre) - Cervical Exam Dilation: Exam Deferred Effacement: Exam Deferred Membranes: Intact - Uterine Contractions Frequency: N/A Duration: N/A Intensity: N/A - Maternal Vital Signs Maternal Temperature: N/A Maternal Blood Pressure: N/A Signs of Preeclampsia: N/A Maternal Respirations: N/A - Maternal Trauma Maternal Trauma: N/A - Assessment - Baby A Baseline FHR: 135 Heart Rate - NICHD Category: Category I (Normal) = 0 NST: Reactive Position: N/A Station: N/A - Total Score - Baby A Total Score - Baby A: 0 - Total Score - Baby B Total Score - Baby B: 0 - Total Score - Baby C Total Score - Baby C: 0 - Level of Risk - Baby A Level of Risk - Baby A: Low (0-5) - Level of Risk - Baby B Level of Risk - Baby B: Low (0-5) - Level of Risk - Baby C Level of Risk - Baby C: Low (0-5) Physician Notification (Pre) - Physician Notified Physician Notified Date: 10/31/20 Physician Notified Time: 18:58 - Notification Comment Comment: ARNIE Bender spoke with Dr. Rondon, no further orders, patient approved for discharge. Disposition - Disposition OB Disposition: Discharge to home Discharge Date: 10/31/20 Discharge Time: 19:08 I agree with the RN Medical Screening Exam: Yes Case reviewed; plan agreed upon as documented in EMR&OBIX.: Yes Diagnosis: FALSE LABOR, UNSPECIFIED
== END 2020-10-31 19:08 | disposition home or self-care (01) ==
LOC: FBPOP 18:07
PROVIDERS: ATTEND Obstetrics & Gynecology
DX: Z53.9 Procedure and treatment not carried out, unspecified reason (principal)

== ENCOUNTER 2020-11-14 10:49 | Outpatient (CLI) | payer MEDICAID, OTHER ==
[2020-11-14 11:09] VITALS: BP 115/67; PULSE 71; RESP 17; TEMP 98.1
--- NOTE | 2020-11-14 12:14 | US ---
EXAMINATION TYPE: US OB BPP wo non-stress DATE OF EXAM: 11/14/2020 COMPARISON: NONE CLINICAL HISTORY: 35-year-old female history of deliveries. EXAM PERFORMED: Transabdominal (TA) FINDINGS: BPP PARAMETERS: PRESENTATION: Vertex LIE: Longitudinal?? HEART RATE: 130 bpm RHYTHM: Normal ORIANA: 13.1cm DIAPHRAGM IMAGED: yes BPP SCORING (based on industrial psychology professor real-time scanning): 1. Breathin (1 episode of breathing of 30 second duration in 30 minutes of scanning time) 2. Movement: 2 (at least 3 discrete body movements in 30 minutes) 3. Tone: 2 (1 episode of active flexion/extension of limb) 4. ORIANA: 2 (ORIANA index > 5cm) TOTAL SCORE: 8 / 8 IMPRESSION: 1. biophysical profile score of 8/8. 2. heart rate 130 BPM. ORIANA 13.1 cm. Cephalic positioning. 3. Growth, anatomy, and placenta not assessed.
--- NOTE | 2020-11-19 14:50 | P.MSEPDOC ---
Presenting Problems - Arrival Data Date of Arrival on Unit: 11/14/20 Time of Arrival on Unit: 10:49 Mode of Transport: Portable Vital Signs - Temperature Temperature: 98.1 F Temperature Source: Oral - Pulse Right Brachial Pulse Rate: 71 Pulse Assessment Method: Automatic Cuff - Respirations Respiratory Rate: 17 Oxygen Delivery Method: Room Air O2 Sat by Pulse Oximetry: 98 - Blood Pressure Right Arm Blood Pressure: 115/67 Blood Pressure Mean: 83 Blood Pressure Source: Automatic Cuff Disposition - Disposition Discharge Date: 11/14/20 Discharge Time: 11:53 I agree with the RN Medical Screening Exam: Yes Case reviewed; plan agreed upon as documented in EMR&OBIX.: Yes Diagnosis: RELATED CONDITIONS, UNSPECIFIED, THIRD TRIMESTER
== END 2020-11-14 11:53 | disposition home or self-care (01) ==
LOC: FBPOP 10:49
PROVIDERS: ATTEND Obstetrics & Gynecology
DX: O26.93 Pregnancy related conditions, unspecified, third trimester (principal); Z3A.00 Weeks of gestation of pregnancy not specified
CPT/HCPCS: 76819

== ENCOUNTER → 2020-11-22 | Outpatient (CLI) | payer MEDICAID, OTHER ==
[2020-11-22 11:07] VITALS: BP 118/63; PULSE 70; RESP 18; TEMP 98.2
--- NOTE | 2020-11-22 12:29 | US ---
EXAMINATION TYPE: US OB BPP wo non-stress DATE OF EXAM: 11/22/2020 COMPARISON: NONE CLINICAL HISTORY: hx of deliveries x 3.. BBP EXAM PERFORMED: Transabdominal (TA) BPP PARAMETERS: HEART RATE: 170 bpm RHYTHM: Normal ORIANA: 9.5 cm DIAPHRAGM IMAGED: Yes BPP SCORIN. Breathin (1 episode of breathing of 30 second duration in 30 minutes of scanning time) 2. Movement: 2 (at least 3 discrete body movements in 30 minutes) 3. Tone: 2 (1 episode of active flexion/extension of limb) 4. ORIANA: 2 (ORIANA index > 5cm) TOTAL SCORE: 8 / 8 Patient received 8/8 score ORIANA is measuring 9.5 cm. IMPRESSIONS: 1. Biophysical profile scoring 8 out of 8. 2. Cardiac activity measures 170 bpm.
== END | disposition home or self-care (01) ==
LOC: FBPOP 10:29
PROVIDERS: ATTEND Obstetrics & Gynecology
DX: Z34.83 Encounter for supervision of other normal pregnancy, third trimester (principal); Z3A.35 35 weeks gestation of pregnancy
CPT/HCPCS: 76819

== ENCOUNTER 2020-11-30 11:52 | Outpatient (CLI) | payer MEDICAID, OTHER ==
--- NOTE | 2020-11-30 15:51 | US ---
EXAMINATION TYPE: US OB BPP wo non-stress DATE OF EXAM: 11/30/2020 COMPARISON: NONE CLINICAL HISTORY: History delivery 33 weeks. EXAM PERFORMED: Transabdominal (TA) BPP PARAMETERS: HEART RATE: 134 bpm RHYTHM: Normal ORIANA: 10.9cm DIAPHRAGM IMAGED: yes BPP SCORIN. Breathin (1 episode of breathing of 30 second duration in 30 minutes of scanning time) 2. Movement: 2 (at least 3 discrete body movements in 30 minutes) 3. Tone: 2 (1 episode of active flexion/extension of limb) 4. ORIANA: 2 (ORIANA index > 5cm) TOTAL SCORE: 8 / 8
== END 2020-11-30 13:27 | disposition home or self-care (01) ==
LOC: FBPOP 11:52
PROVIDERS: ATTEND Obstetrics & Gynecology
DX: O09.893 Supervision of other high risk pregnancies, third trimester (principal); Z3A.36 36 weeks gestation of pregnancy; Z87.891 Personal history of nicotine dependence
CPT/HCPCS: 59025; 76819

== ENCOUNTER 2020-12-01 16:29 | Outpatient (CLI) | payer MEDICAID, OTHER ==
[2020-12-01 18:53] VITALS: BP 132/81; PULSE 80; RESP 16; TEMP 97.3
--- NOTE | 2020-12-02 07:33 | P.MSEPDOC ---
Presenting Problems - Arrival Data Date of Arrival on Unit: 12/01/20 Time of Arrival on Unit: 16:29 Mode of Transport: Ambulatory - Complaint OB-Reason for Admission/Chief Complaint: Possible Onset of Labor Comment: Contractions since 1200, more regular for last 2 hours Medical History - Information : 8 Para: 4 Term: 2 : 2 Abortions: Spontaneous or Elective: 3 Number of Living Children: 4 - Gestational Age Gestational Age by DIANA (wks/days): 36 Weeks and 1 Days - History Complications: Prior Review of Systems - Review of Systems Constitutional: No problems Breast: No problems ENT: No problems Cardiovascular: No problems Respiratory: No problems Gastrointestinal: No problems Genitourinary: No problems Musculoskeletal: No problems Neurological: No problems Skin: No problems Vital Signs - Temperature Temperature: 97.3 F Temperature Source: Temporal Artery Scan - Pulse Right Sitting Brachial Pulse Rate: 80 Pulse Assessment Method: Automatic Cuff - Respirations Respiratory Rate: 16 Oxygen Delivery Method: Room Air O2 Sat by Pulse Oximetry: 98 - Blood Pressure Right Arm Sitting Blood Pressure: 132/81 Blood Pressure Mean: 98 Blood Pressure Source: Automatic Cuff Medical Screen Scoring (Pre) - Cervical Exam Dilation: 1-3 cm = 1 Effacement: More than 50% = 2 Membranes: Intact - Uterine Contractions Frequency: > 5 minutes apart = 1 Duration: > 40 seconds = 2 Intensity: N/A - Maternal Vital Signs Maternal Temperature: N/A Maternal Blood Pressure: N/A Signs of Preeclampsia: N/A Maternal Respirations: N/A - Maternal Trauma Maternal Trauma: N/A - Assessment - Baby A Baseline FHR: 140 Heart Rate - NICHD Category: Category I (Normal) = 0 NST: Reactive Position: N/A Station: N/A - Total Score - Baby A Total Score - Baby A: 6 - Total Score - Baby B Total Score - Baby B: 6 - Total Score - Baby C Total Score - Baby C: 6 - Level of Risk - Baby A Level of Risk - Baby A: Medium (6-9) - Level of Risk - Baby B Level of Risk - Baby B: Medium (6-9) - Level of Risk - Baby C Level of Risk - Baby C: Medium (6-9) Physician Notification (Pre) - Physician Notified Physician Notified Date: 12/01/20 Physician Notified Time: 17:50 New Order Received: Yes - Notification Comment Comment: Spk c\Dr. Leonard, advsd pt of Dr. Sampson's, , 38 10/13, Hx of PTL, contractions since 1200, working on med/surg floor on feet, contrx 1-4 min apart on arrival, currently 2-10min, SVE 2.5/80/-3, minimal change after 1 hour. Orders rec'd to watch another hour if pt prefers, d/c c\no change in SVE or pt may be d/c home now. Pt elected to be watched anouther hour, no change in SVE, d/c home c\instructions. To follow up as scheduled. Disposition - Disposition OB Disposition: Discharge to home, Written follow up instructions reviewed Discharge Date: 12/01/20 Discharge Time: 18:45 I agree with the RN Medical Screening Exam: Yes Case reviewed; plan agreed upon as documented in EMR&OBIX.: Yes Diagnosis: FALSE LABOR BEFORE 37 COMPLETED WEEKS OF GEST, THIRD TRI
== END 2020-12-01 18:45 | disposition home or self-care (01) ==
LOC: FBPOP 16:29
PROVIDERS: ATTEND Obstetrics & Gynecology
DX: O47.03 False labor before 37 completed weeks of gestation, third trimester (principal); Z3A.36 36 weeks gestation of pregnancy
CPT/HCPCS: 59025; 99213

== ENCOUNTER 2020-12-12 11:56 | Outpatient (CLI) | payer MEDICAID, OTHER ==
[2020-12-12 13:29] VITALS: BP 136/86; PULSE 84; RESP 18; TEMP 97.2
--- NOTE | 2020-12-12 15:38 | US ---
EXAMINATION TYPE: US OB BPP wo non-stress DATE OF EXAM: 12/12/2020 COMPARISON: 11/30/2020 CLINICAL HISTORY: 35-year-old female abnormal quad. EXAM PERFORMED: Transabdominal (TA). Real-time ultrasound assessment of the biophysical profile by cassie rich senior construction estimator. Selective images were saved. FINDINGS: BPP PARAMETERS: PRESENTATION: Vertex HEART RATE: 143 bpm RHYTHM: Normal ORIANA: 11.3cm DIAPHRAGM IMAGED: yes BPP SCORIN. Breathin (1 episode of breathing of 30 second duration in 30 minutes of scanning time) 2. Movement: 2 (at least 3 discrete body movements in 30 minutes) 3. Tone: 2 (1 episode of active flexion/extension of limb) 4. ORIANA: 2 (ORIANA index > 5cm) IMPRESSION: Biophysical profile TOTAL SCORE: 8 / 8
== END 2020-12-12 13:15 | disposition home or self-care (01) ==
LOC: FBPOP 11:56
PROVIDERS: ATTEND Obstetrics & Gynecology
DX: O26.893 Other specified pregnancy related conditions, third trimester (principal); Z3A.36 36 weeks gestation of pregnancy; Z87.891 Personal history of nicotine dependence
CPT/HCPCS: 59025; 76819; 99213

== ENCOUNTER 2020-12-20 11:59 | Outpatient (CLI) | payer MEDICAID, OTHER ==
--- NOTE | 2020-12-20 13:06 | US ---
EXAMINATION TYPE: US OB BPP wo non-stress DATE OF EXAM: 12/20/2020 COMPARISON: Multiple prev Biophysicals CLINICAL HISTORY: abnormal quad. H/O deliveries EXAM PERFORMED: Transabdominal (TA) BPP PARAMETERS: PRESENTATION: Vertex HEART RATE: 132 bpm RHYTHM: Normal ORIANA: 10.5 DIAPHRAGM IMAGED: Yes BPP SCORIN. Breathin (1 episode of breathing of 30 second duration in 30 minutes of scanning time) 2. Movement: 2 (at least 3 discrete body movements in 30 minutes) 3. Tone: 2 (1 episode of active flexion/extension of limb) 4. ORIANA: 2 (ORIANA index > 5cm) TOTAL SCORE: 8 / 8 Results given to L&D at time of exam
[2020-12-20 13:33] VITALS: BP 121/65; PULSE 70; RESP 16; TEMP 98.2
== END 2020-12-20 13:05 | disposition home or self-care (01) ==
LOC: FBPOP 11:59
PROVIDERS: ATTEND Obstetrics & Gynecology
DX: O26.899 Other specified pregnancy related conditions, unspecified trimester (principal); Z3A.00 Weeks of gestation of pregnancy not specified
CPT/HCPCS: 59025; 76819

== ENCOUNTER 2020-12-27 06:15 | Inpatient (IN) | payer MEDICAID, OTHER ==
[2020-12-27] MEDS ORDERED: LIDOCAINE 0.5% (PF) 5 MG/ML (50 ML SDV) SQ PRN (07:23)
[2020-12-27] MEDS ORDERED: TERBUTALINE 1 MG/ML VIAL SQ PRN (07:23)
[2020-12-27] MEDS ORDERED: OXYTOCIN 10 UNIT/ML 1 ML VIAL IM PRN (07:23)
[2020-12-27] MEDS ORDERED: METHYLERGONOVINE 0.2 MG/ML 1 ML AMP IM PRN (07:23)
[2020-12-27] MEDS ORDERED: CARBOPROST TROMETHAMINE 250 MCG/ML 1 ML AMP IM PRN (07:23)
[2020-12-27] MEDS: LACTATED RINGERS 1,000 ML IV SCH ×2 (07:37→09:57)
[2020-12-27] MEDS: OXYTOCIN 30 UNITS/500 ML NS 30 UNIT in SALINE 1 500ML.BAG IV SCH ×2 (07:37→11:24)
[2020-12-27 07:51] LABS: Basophils % (A) 0 %; Eosinophils % (A) 1 %; HCT 35.3 % (34.0-46.0); HGB 12.5 gm/dL (11.4-16.0); Lymphocytes # (A) 1.1 k/uL (1.0-4.8); Lymphocytes % (A) 23 %; MCH 35.3 pg (25.0-35.0); MCHC 35.4 g/dL (31.0-37.0); MCV 99.7 fL (80.0-100.0); Mean Platelet Volume 7.4; Monocytes # (A) 0.4 k/uL (0-1.0); Monocytes % (A) 8 %; Neutrophils # (A) 3.3 k/uL (1.3-7.7); Neutrophils % (A) 67 %; Platelet Count 120 k/uL (150-450); RBC 3.54 m/uL (3.80-5.40); RDW 12.5 % (11.5-15.5); WBC 4.9 k/uL (3.8-10.6)
[2020-12-27 07:58] VITALS: RESP 16
[2020-12-27] MEDS ORDERED: diphenhydrAMINE 50 MG CAP PO PRN (10:43)
[2020-12-27] MEDS ORDERED: ZOLPIDEM 5 MG TAB PO PRN (10:43)
[2020-12-27] MEDS ORDERED: diphenhydrAMINE 50 MG/ML 1 ML VIAL IVP PRN ×2 (10:43)
[2020-12-27] MEDS ORDERED: LANOLIN CREAM 5 GM TUBE TOPICAL PRN (10:43)
[2020-12-27] MEDS ORDERED: diphenhydrAMINE 25 MG CAP PO PRN (10:43)
[2020-12-27] MEDS ORDERED: SIMETHICONE 80 MG CHEWABLE PO PRN (10:43)
[2020-12-27] MEDS ORDERED: ACETAMINOPHEN TAB 325 MG TAB PO PRN (10:43)
[2020-12-27] MEDS ORDERED: HYDROCORTISONE 2.5% RECTAL CREAM 30 GM TUBE RECTAL PRN (10:43)
[2020-12-27] MEDS ORDERED: BENZOCAINE/MENTHOL SPRAY 1 GM/SPRAY AEROSOL TOPICAL PRN (10:43)
--- NOTE | 2020-12-27 10:46 | P.HPOB ---
History of Present Illness H&P Date: 12/27/20 Chief Complaint: at term: Induction of labor Patient is a 35-year-old G3 8 P4 at 39 weeks gestation arise for induction of labor. Her course has remained unremarkable and she was feeling well at this time. She does have a history of delivery and was therefore treated with [place] but she did very well with this treatment and it was stopped at 35 weeks. She did receive nonstress tests and biophysical profiles through the latter part of the . Pertinent labs O+ blood type, Rh and it was negative, rubella is immune, hepatitis B surface antigen/RPR/HIV group B strep were negative. She is dilated 4 cm artificial rupture membranes was performed and clear fluid is noted. heart tones show a category 1 tracing. She wants an epidural for analgesia and we will plan Pitocin augmentation of labor Past Medical History Past Medical History: No Reported History Additional Past Medical History / Comment(s): Thrombocytopenia during this History of Any Multi-Drug Resistant Organisms: None Reported Past Surgical History: No Surgical Hx Reported Past Anesthesia/Blood Transfusion Reactions: No Reported Reaction Past Psychological History: No Psychological Hx Reported Smoking Status: Former smoker Past Alcohol Use History: None Reported Past Drug Use History: None Reported - Past Family History Mother Family Medical History: No Reported History Medications and Allergies Home Medications Medication Instructions Recorded Confirmed Type Wad-Mjcs-Auoyp Acid 1 cap PO HS MDD 1 tab 06/19/18 12/27/20 History [-U Capsule (formulary)] Allergies Allergy/AdvReac Type Severity Reaction Status Date / Time adhesive tape AdvReac Rash/Hives Verified 12/27/20 07:23 Exam Osteopathic Statement: *. No significant issues noted on an osteopathic structural exam other than those noted in the History and Physical/Consult. Vital Signs Temp Pulse Resp BP Pulse Ox 12/27/20 07:56 97.8 F 86 16 136/85 99 Intake and Output 12/26/20 12/27/20 12/27/20 22:59 06:59 14:59 Other: Weight 90.265 kg - OBG Physical Exam Breast: both: normal (no masses) Abdomen: bowel sounds normal, no diffuse tenderness, no bruit present, no guarding noted, no hepatomegaly, no splenomegaly, no mass Vulva: both: normal Vagina: normal moisture, no discharge Cervix: no lesion, no discharge Uterus: normal size, normal contour Adnexa: both: normal Anus/Rectum: normal perianal skin, no rectal mass, no hemorrhoids, heme negative Results Result Diagrams: 12/27/20 07:10 Abnormal Lab Results - Last 24 Hours (Table) 12/27/20 Range/Units 07:10 RBC 3.54 L (3.80-5.40) m/uL MCH 35.3 H (25.0-35.0) pg Plt Count 120 L (150-450) k/uL
--- NOTE | 2020-12-27 10:48 | P.PROBDLV ---
Vaginal Delivery Note - . Vaginal Delivery Note: Patient progressed complete and pushed with spontaneous vaginal delivery of a viable female over a second-degree perineal laceration. Following delivery of the head from left occiput anterior position anterior posterior shoulders were easily delivered with compound hand noted. Once baby was fully delivered mouth nares were bulb suctioned and baby was placed on mother's abdomen where the umbilical cord was allowed to pulsate for 30 seconds prior to clamping and cutting. Once this was completed her prescription personnel was present and assumed care. Placenta was then delivered intact and Pitocin was added to the IV. Immediately brisk bleeding was noted coming from the vagina. Secondary perineal laceration was identified and repaired with 3-0 Vicryl following 1% Xylocaine for analgesia. Spiked Pitocin treatment bleeding persisted and due to concern over hemorrhage Methergine IM was given. Bleeding did at this point start to diminish. We did have the operating room on standby for an exam under anesthesia but with bleeding now much better controlled we'll plan to monitor closely for now. She is stable and other than mild lightheadedness does feel well. It is noted that her platelets were 120 this morning. Prescription 9 and 9 at one and 5 minutes just Jevon and the weight was 7 lbs. 11 oz. She did progress rapidly and delivered very rapidly going from 4 to complete and approximately 20 minutes based on nurse's inform ation.
[2020-12-27] MEDS: IBUPROFEN 600 MG TAB PO SCH ×3 (10:56→18:42)
--- NOTE | 2020-12-27 17:14 | P.PN ---
Progress Note - Text Progress Note Date: 12/27/20 Debo is seen and evaluated. She continues to have lightheadedness with ambulation. Vital signs are however stable and she is currently afebrile. She voices no other complaints. A stat CBC has been ordered. We did discuss the possibility of blood products should her hemoglobin be significantly decreased at this time she is not interested in those but will wait CBC result. All the questions are answered for her at this time. Lochia is reported to be light and she has had no other significant bleeding the last several hours.
[2020-12-27 17:31] LABS: Basophils % (A) 0 %; Eosinophils % (A) 1 %; HCT 29.6 % (34.0-46.0); HGB 10.5 gm/dL (11.4-16.0); Lymphocytes # (A) 1.2 k/uL (1.0-4.8); Lymphocytes % (A) 19 %; MCH 35.4 pg (25.0-35.0); MCHC 35.6 g/dL (31.0-37.0); MCV 99.5 fL (80.0-100.0); Mean Platelet Volume 8.8; Monocytes # (A) 0.5 k/uL (0-1.0); Monocytes % (A) 8 %; Neutrophils # (A) 4.8 k/uL (1.3-7.7); Neutrophils % (A) 72 %; Platelet Count 104 k/uL (150-450); RBC 2.97 m/uL (3.80-5.40); RDW 12.5 % (11.5-15.5); WBC 6.7 k/uL (3.8-10.6)
[2020-12-27] MEDS: SENNOSIDES-DOCUSATE SODIUM 1 EACH TAB PO SCH (19:38)
[2020-12-28] MEDS: IBUPROFEN 600 MG TAB PO SCH ×4 (00:45→18:49)
[2020-12-28] MEDS: SENNOSIDES-DOCUSATE SODIUM 1 EACH TAB PO SCH ×2 (08:40→19:27)
--- NOTE | 2020-12-28 10:30 | P.DS ---
Providers Date of admission: 12/27/20 06:47 Expected date of discharge: 12/28/20 Attending physician: Yovani Sampson Primary care physician: Stated None Hospital Course: Hannah is doing very well day 1. She is ambulating, voiding and tolerating her diet. She voices no complaints and the lightheadedness from yesterday's completely resolved. No signs or symptoms of hypovolemia. We'll plan discharged home today and follow-up with me in 6 weeks. Vital signs are otherwise stable. He is afebrile. Heart regular, lungs clear, extremities are without pain. Abdomen soft uterus is firm and lochia is reported to be light. Assessment day 1. Plan discharged home follow me in 6 weeks. Prescription for Motrin has been provided. Patient Condition at Discharge: Good Plan - Discharge Summary New Discharge Prescriptions: New Ibuprofen [Motrin] 600 mg PO Q6HR PRN #30 tab PRN Reason: Pain No Action Piv-Dosu-Euhdr Acid [-U Capsule (formulary)] 1 cap PO HS MDD 1 tab Discharge Medication List Btd-Mwbh-Rgpiu Acid [-U Capsule (formulary)] 1 cap PO HS MDD 1 tab 06/19/18 [History] Ibuprofen [Motrin] 600 mg PO Q6HR PRN #30 tab 12/28/20 [Rx] Follow up Appointment(s)/Referral(s): Yovani Sampson DO [Doctor of Osteopathic Medicine] - 6 Weeks Activity/Diet/Wound Care/Special Instructions: No Heavy lifting, limit stairs and driving, and pelvic rest. If any high temperatures, heavy bleeding, or severe pain call my office Discharge Disposition: HOME SELF-CARE
[2020-12-29] MEDS: IBUPROFEN 600 MG TAB PO SCH ×3 (06:56→13:59)
[2020-12-29 08:06] VITALS: BP 126/70; PULSE 65; TEMP 99
[2020-12-29] MEDS: SENNOSIDES-DOCUSATE SODIUM 1 EACH TAB PO SCH (08:11)
--- NOTE | 2020-12-29 08:59 | P.DS ---
Providers Date of admission: 12/27/20 06:47 Expected date of discharge: 12/29/20 Attending physician: Yovani Sampson Primary care physician: Stated None Hospital Course: Just and stayed yesterday as her baby had jaundice. No changes from discharge dictation her instructions all questions answered. She is stable for discharge today. Patient Condition at Discharge: Good Plan - Discharge Summary New Discharge Prescriptions: New Ibuprofen [Motrin] 600 mg PO Q6HR PRN #30 tab PRN Reason: Pain No Action Opl-Ozsb-Djryk Acid [-U Capsule (formulary)] 1 cap PO HS MDD 1 tab Discharge Medication List Syo-Lend-Dqspc Acid [-U Capsule (formulary)] 1 cap PO HS MDD 1 tab 06/19/18 [History] Ibuprofen [Motrin] 600 mg PO Q6HR PRN #30 tab 12/28/20 [Rx] Follow up Appointment(s)/Referral(s): Yovani Sampson DO [Doctor of Osteopathic Medicine] - 6 Weeks Activity/Diet/Wound Care/Special Instructions: No Heavy lifting, limit stairs and driving, and pelvic rest. If any high temperatures, heavy bleeding, or severe pain call my office Discharge Disposition: HOME SELF-CARE
== END 2020-12-29 15:30 | disposition home or self-care (01) | DRG 806 ==
LOC: 4FBP 06:47
PROVIDERS: ADMIT Obstetrics & Gynecology; ATTEND Obstetrics & Gynecology
PROC: 10907ZC Drainage of Amniotic Fluid, Therapeutic from Products of Conception, Via Natural or Artificial Opening (ICD-10-PCS; principal; 2020-12-27)
PROC: 0KQM0ZZ Repair Perineum Muscle, Open Approach (ICD-10-PCS; principal; 2020-12-27)
PROC: 10E0XZZ Delivery of Products of Conception, External Approach (ICD-10-PCS; principal; 2020-12-27)
PROC: 3E033VJ Introduction of Other Hormone into Peripheral Vein, Percutaneous Approach (ICD-10-PCS; principal; 2020-12-27)
DX: O70.1 Second degree perineal laceration during delivery (principal); O99.12 Other diseases of the blood and blood-forming organs and certain disorders involving the immune mechanism complicating childbirth; Z37.0 Single live birth; D69.6 Thrombocytopenia, unspecified; Z3A.39 39 weeks gestation of pregnancy; Z87.891 Personal history of nicotine dependence; Z88.8 Allergy status to other drugs, medicaments and biological substances
CPT/HCPCS: 85025; 86850; 86900; 86901

== ENCOUNTER → 2021-08-02 | Outpatient (CLI) | payer MEDICAID, OTHER | END | disposition home or self-care (01) | LOC: LABMAIN 21:07 | PROVIDERS: ATTEND Emergency Medicine | DX: Z03.818 Encounter for observation for suspected exposure to other biological agents ruled out (principal); Z20.822 Contact with and (suspected) exposure to COVID-19 | CPT/HCPCS: 87635 ==

== ENCOUNTER 2021-11-28 12:22 | Emergency (ER) | payer MEDICAID, OTHER ==
[2021-11-28 12:48] VITALS: BP 128/81; PULSE 58; RESP 16; TEMP 98.4
--- NOTE | 2021-11-28 13:18 | ED ---
General Adult HPI - General Chief complaint: Skin/Abscess/Foreign Body Stated complaint: infection in foot Time Seen by Provider: 11/28/21 12:49 Source: patient, RN notes reviewed Mode of arrival: ambulatory Limitations: no limitations - History of Present Illness Initial comments: This a 36-year-old female presents emergency from chief complaint of infection to her right foot. She states that she stepped on a toy a few days ago noticed a sorenesslower redness last night her foot but seemed to increase today. Patient was seen in urgent care and sent over to return for evaluation. Patient denies fevers chills night sweats no associated pain denies being diabetic denies taking any medications. - Related Data Home Medications Medication Instructions Recorded Confirmed Eoj-Goqw-Wdvog Acid 1 cap PO HS MDD 1 tab 06/19/18 12/27/20 [-U Capsule (formulary)] Previous Rx's Medication Instructions Recorded Ibuprofen [Motrin] 600 mg PO Q6HR PRN #30 tab 12/28/20 Cephalexin [Keflex] 500 mg PO Q6HR #40 cap 11/28/21 Sulfamethox-Tmp 800-160Mg [Bactrim 1 each PO Q12HR #20 tab 11/28/21 Ds] Allergies Allergy/AdvReac Type Severity Reaction Status Date / Time adhesive tape AdvReac Rash/Hives Verified 11/28/21 12:48 Review of Systems ROS Statement: Those systems with pertinent positive or pertinent negative responses have been documented in the HPI. ROS Other: All systems not noted in ROS Statement are negative. Past Medical History Past Medical History: No Reported History Additional Past Medical History / Comment(s): Thrombocytopenia during this History of Any Multi-Drug Resistant Organisms: None Reported Past Surgical History: No Surgical Hx Reported Past Anesthesia/Blood Transfusion Reactions: No Reported Reaction Past Psychological History: No Psychological Hx Reported Smoking Status: Former smoker Past Alcohol Use History: None Reported Past Drug Use History: None Reported - Past Family History Mother Family Medical History: No Reported History General Exam Limitations: no limitations General appearance: alert, in no apparent distress Head exam: Present: atraumatic, normocephalic, normal inspection Eye exam: Present: normal appearance, PERRL, EOMI. Absent: scleral icterus, conjunctival injection, periorbital swelling ENT exam: Present: normal exam, normal oropharynx, mucous membranes moist Neck exam: Present: normal inspection, full ROM. Absent: tenderness, meningismus, lymphadenopathy Respiratory exam: Present: normal lung sounds bilaterally. Absent: respiratory distress, wheezes, rales, rhonchi, stridor Cardiovascular Exam: Present: regular rate, normal rhythm, normal heart sounds. Absent: systolic murmur, diastolic murmur, rubs, gallop, clicks Extremities exam: Present: other (Right foot nontender, neurovascular intact there is some erythema or change from the distal fifth metatarsal region streaks to the medial aspect of her foot into the distal leg nontender, no abscess noted) Course Vital Signs 11/28/21 12:46 Temperature 98.4 F Pulse Rate 58 L Respiratory 16 Rate Blood Pressure 128/81 O2 Sat by Pulse 99 Oximetry Medical Decision Making - Medical Decision Making 36-year-old female presented for infection to her right foot. Patient symptoms to starting last 24 hours. She is afebrile with no risk factors. There is no gas formation on x-ray I do believe the patient may be started on oral antibiotics with strict return parameters patient agrees this plan. Disposition Clinical Impression: Acute lymphangitis of right foot Disposition: HOME SELF-CARE Condition: Stable Instructions (If sedation given, give patient instructions): Lymphangitis (ED) Additional Instructions: Please return to the Emergency Department if symptoms worsen or any other concerns. Prescriptions: Sulfamethox-Tmp 800-160Mg [Bactrim Ds] 1 each PO Q12HR #20 tab Cephalexin [Keflex] 500 mg PO Q6HR #40 cap Is patient prescribed a controlled substance at d/c from ED?: No Referrals: None,Stated [Primary Care Provider] - 1-2 days Time of Disposition: 13:48
--- NOTE | 2021-11-28 13:36 | XR ---
EXAMINATION TYPE: XR foot complete RT DATE OF EXAM: 11/28/2021 COMPARISON: NONE HISTORY: 36-year-old female increasing right foot pain and redness since slipping on a toy, 1 week ag o. TECHNIQUE: 3 views FINDINGS: Bipartite tibial sesamoid. Type II accessory navicular. No acute fracture, subluxation, or dislocatio n. IMPRESSION: No acute osseous abnormality seen.
== END 2021-11-28 14:14 | disposition home or self-care (01) ==
LOC: EC 12:22
DX: L03.125 Acute lymphangitis of right lower limb (principal); Z87.891 Personal history of nicotine dependence; Z91.048 Other nonmedicinal substance allergy status
CPT/HCPCS: 99283

== ENCOUNTER 2023-01-10 20:12 | Emergency (ER) | payer MEDICAID, OTHER ==
[2023-01-10 20:23] VITALS: BP 131/98; PULSE 64; RESP 18; TEMP 98.1
[2023-01-10] MEDS ORDERED: SODIUM CHLORIDE 0.9% 1,000 ML IV STA (20:53)
[2023-01-10] MEDS ORDERED: ONDANSETRON 4 MG/2 ML VIAL IVP STA (20:53)
[2023-01-10] MEDS ORDERED: KETOROLAC 15 MG/ML 1 ML VIAL IVP STA ×2 (20:53→23:01)
--- NOTE | 2023-01-10 21:24 | ED ---
Abdominal Pain HPI - General Chief Complaint: Abdominal Pain Stated Complaint: abd pain Time Seen by Provider: 01/10/23 20:27 Source: patient, RN notes reviewed Mode of arrival: ambulatory Limitations: no limitations - History of Present Illness Initial Comments: This is a 37-year-old female who presents to the emergency department for abdominal pain. States that yesterday she developed right lower quadrant abdominal pain. This has since started to wrap around to the right lower back. Today, she started to develop pain going up towards the right upper quadrant. Reports a history of problems with her gallbladder, however this is never in the lower abdomen as well and the pain feels different. She has nausea but no vomiting. Denies any changes in bowel or bladder habits. Denies any fevers, chills, sore throat, cough, dyspnea, chest pain, palpitations, vomiting, diarrhea, or headaches. MD Complaint: abdominal pain Onset/Timin -: days(s) Location: RLQ Radiation: RUQ, back Associated Symptoms: nausea - Related Data Home Medications Medication Instructions Recorded Confirmed Burn Evolved (Weight Loss 2 cap PO TID 01/10/23 01/10/23 Supplement) Previous Rx's Medication Instructions Recorded Cephalexin [Keflex] 500 mg PO Q12HR 7 Days #14 cap 01/10/23 Allergies Allergy/AdvReac Type Severity Reaction Status Date / Time adhesive tape AdvReac Rash/Hives Verified 01/10/23 21:51 Review of Systems ROS Statement: Those systems with pertinent positive or pertinent negative responses have been documented in the HPI. ROS Other: All systems not noted in ROS Statement are negative. Past Medical History Past Medical History: No Reported History Additional Past Medical History / Comment(s): Thrombocytopenia during this p regnancy History of Any Multi-Drug Resistant Organisms: None Reported Past Surgical History: No Surgical Hx Reported Past Anesthesia/Blood Transfusion Reactions: No Reported Reaction Past Psychological History: No Psychological Hx Reported Smoking Status: Former smoker Past Alcohol Use History: None Reported Past Drug Use History: None Reported - Past Family History Mother Family Medical History: No Reported History General Exam Limitations: no limitations General appearance: alert, in no apparent distress Head exam: Present: atraumatic, normocephalic, normal inspection Respiratory exam: Present: normal lung sounds bilaterally. Absent: respiratory distress, wheezes, rales, rhonchi, stridor Cardiovascular Exam: Present: regular rate, normal rhythm, normal heart sounds. Absent: systolic murmur, diastolic murmur, rubs, gallop, clicks GI/Abdominal exam: Present: soft, tenderness (RLQ), normal bowel sounds. Absent: distended Neurological exam: Present: alert, oriented X3, CN II-XII intact Psychiatric exam: Present: normal affect, normal mood Skin exam: Present: warm, dry, intact, normal color. Absent: rash Course Vital Signs 01/10/23 20:20 Temperature 98.1 F Pulse Rate 64 Respiratory 18 Rate Blood Pressure 131/98 O2 Sat by Pulse 98 Oximetry Medical Decision Making - Medical Decision Making This is a 37-year-old female who presents to the emergency department for abdominal pain. Was pt. sent in by a medical professional or institution? @ -No Did you speak to anyone other than the patient for history? @ -No Did you review nursing and triage notes? @ -Yes, and I agree, it is accurate with regards to the patient's symptoms. Were old charts reviewed? @ -No Differential Diagnosis? @ -Differential Abdominal Pain Women: Appendicitis, Cholecystitis, diverticulosis, ischemic bowel, pancreatitis, hepatitis, UTI, gastroenteritis, AAA, incarcerated hernia, bowel obstruction, constipation, inflammatory bowel, hepatitis, peptic ulcer disease, splenic infarction, perforated viscus, vulvitis, ovarian torsion, PID, kidney stone, placenta abruption, this is not meant to be an all-inclusive list CT interpreted by me (1pt min.)? @ -Computed tomography scan of the abdomen and pelvis obtained. My interpretation identifies no bowel wall thickening or dilation of the appendix. U/S interpreted by me (1pt. min.)? @ -Transvaginal ultrasound obtained. My interpretation identifies no evidence of an ovarian cyst. What testing was considered but not performed? (CT, X-rays, U/S, labs)? Why? @ -None What meds were considered but not given? Why? @ -None Did you discuss the management of the patient with other professionals? @ -No Did you reconcile home meds? @ -No Was smoking cessation discussed for >3mins.? @ -No Was critical care preformed (if so, how long)? @ -No Were there social determinants of health that impacted care today? How? (Homelessness, low income, unemployed, alcoholism, drug addiction, transportation, low edu. Level, literacy, decrease access to med. care, detention, rehab)? @ -No Was there de-escalation of care discussed even if they declined? (Discuss DNR or withdrawal of care, Hospice)? @ -No What co-morbidities impacted this encounter? (DM, HTN, Smoking, COPD, CAD, Cancer, CVA, Hep., AIDS, mental health diagnosis, sleep apnea, morbid obesity)? @ -None Was patient admitted / discharged? @ -Discharged. Lab work obtained and found to be nonactionable. Urinalysis positive for a UTI. Computed tomography scan of the abdomen and pelvis reveals no acute intra-abdominal pathologies. They do make note of a malpositioned IUD and cannot rule out a perforation. Transvaginal ultrasound was subsequently obtained. This confirmed that the IUD was malpositioned, however there was no evidence of perforation. Findings reviewed with the patient. Symptoms were well-managed IV fluids, Toradol, and Zofran. She was given a dose of ceftriaxone in the emergency department for a UTI. Prescription for Keflex provided with dosing instructions reviewed. Otherwise advised supportive care with ibuprofen and Tylenol and remaining well-hydrated. Undiagnosed new problem with uncertain prognosis? @ -None Drug Therapy requiring intensive monitoring for toxicity (Heparin, Nitro, Insulin, Cardizem)? @ -None Were any procedures done? @ -None Diagnosis/symptom? @ -Abdominal pain, UTI Acute, or Chronic, or Acute on Chronic? @ -Acute Uncomplicated (without systemic symptoms) or Complicated (systemic symptoms)? @ -Uncomplicated Side effects of treatment? @ -None Exacerbation, Progression, or Severe Exacerbation] @ -Not applicable Poses a threat to life or bodily function? @ -No Return precautions reviewed in depth, the patient is instructed to return to the emergency department with any new, worsening, or concerning symptoms. Patient verbalized understanding. This case was discussed in detail with the attending ED physician, Dr. Harris. Presentation, findings, and treatment plan discussed in detail as well. - Lab Data Result diagrams: 01/10/23 21:16 01/10/23 21:16 Lab Results 01/10/23 01/10/23 01/10/23 Range/Units 21:16 21:16 21:16 WBC 3.7 L (3.8-10.6) k/uL RBC 3.83 (3.80-5.40) m/uL Hgb 12.2 (11.4-16.0) gm/dL Hct 36.3 (34.0-46.0) % MCV 94.9 (80.0-100.0) fL MCH 32.0 (25.0-35.0) pg MCHC 33.7 (31.0-37.0) g/dL RDW 12.5 (11.5-15.5) % Plt Count 197 (150-450) k/uL MPV 7.9 Neutrophils % 33 % Lymphocytes % 54 % Monocytes % 8 % Eosinophils % 2 % Basophils % 1 % Neutrophils # 1.2 L (1.3-7.7) k/uL Lymphocytes # 2.0 (1.0-4.8) k/uL Monocytes # 0.3 (0-1.0) k/uL Eosinophils # 0.1 (0-0.7) k/uL Basophils # 0.0 (0-0.2) k/uL Sodium 139 (137-145) mmol/L Potassium 4.2 (3.5-5.1) mmol/L Chloride 104 (98-107) mmol/L Carbon Dioxide 29 (22-30) mmol/L Anion Gap 6 mmol/L BUN 14 (7-17) mg/dL Creatinine 0.73 (0.52-1.04) mg/dL Est GFR (CKD-EPI)AfAm >90 (>60 ml/min/1.73 sqM) Est GFR (CKD-EPI)NonAf >90 (>60 ml/min/1.73 sqM) Glucose 106 H (74-99) mg/dL Plasma Lactic Acid Forrest 0.5 L (0.7-2.0) mmol/L Calcium 9.6 (8.4-10.2) mg/dL Total Bilirubin 0.1 L (0.2-1.3) mg/dL AST 17 (14-36) U/L ALT 19 (4-34) U/L Alkaline Phosphatase 68 (38-126) U/L Total Protein 6.9 (6.3-8.2) g/dL Albumin 4.2 (3.5-5.0) g/dL Amylase 78 (30-110) U/L Lipase 123 (23-300) U/L Urine Color Urine Appearance (Clear) Urine pH (5.0-8.0) Ur Specific Tuttle (1.001-1.035) Urine Protein (Negative) Urine Glucose (UA) (Negative) Urine Ketones (Negative) Urine Blood (Negative) Urine Nitrite (Negative) Urine Bilirubin (Negative) Urine Urobilinogen (<2.0) mg/dL Ur Leukocyte Esterase (Negative) Urine RBC (0-5) /hpf Urine WBC (0-5) /hpf Ur Squamous Epith Cells (0-4) /hpf Urine Bacteria (None) /hpf Urine Mucus (None) /hpf Urine HCG, Qual (Not Detectd) 01/10/23 01/10/23 Range/Units 21:24 21:24 WBC (3.8-10.6) k/uL RBC (3.80-5.40) m/uL Hgb (11.4-16.0) gm/dL Hct (34.0-46.0) % MCV (80.0-100.0) fL MCH (25.0-35.0) pg MCHC (31.0-37.0) g/dL RDW (11.5-15.5) % Plt Count (150-450) k/uL MPV Neutrophils % % Lymphocytes % % Monocytes % % Eosinophils % % Basophils % % Neutrophils # (1.3-7.7) k/uL Lymphocytes # (1.0-4.8) k/uL Monocytes # (0-1.0) k/uL Eosinophils # (0-0.7) k/uL Basophils # (0-0.2) k/uL Sodium (137-145) mmol/L Potassium (3.5-5.1) mmol/L Chloride (98-107) mmol/L Carbon Dioxide (22-30) mmol/L Anion Gap mmol/L BUN (7-17) mg/dL Creatinine (0.52-1.04) mg/dL Est GFR (CKD-EPI)AfAm (>60 ml/min/1.73 sqM) Est GFR (CKD-EPI)NonAf (>60 ml/min/1.73 sqM) Glucose (74-99) mg/dL Plasma Lactic Acid Forrest (0.7-2.0) mmol/L Calcium (8.4-10.2) mg/dL Total Bilirubin (0.2-1.3) mg/dL AST (14-36) U/L ALT (4-34) U/L Alkaline Phosphatase (38-126) U/L Total Protein (6.3-8.2) g/dL Albumin (3.5-5.0) g/dL Amylase (30-110) U/L Lipase (23-300) U/L Urine Color Light Yellow Urine Appearance Cloudy H (Clear) Urine pH 6.5 (5.0-8.0) Ur Specific Tuttle 1.016 (1.001-1.035) Urine Protein Negative (Negative) Urine Glucose (UA) Negative (Negative) Urine Ketones Negative (Negative) Urine Blood Negative (Negative) Urine Nitrite Negative (Negative) Urine Bilirubin Negative (Negative) Urine Urobilinogen <2.0 (<2.0) mg/dL Ur Leukocyte Esterase Large H (Negative) Urine RBC 5 (0-5) /hpf Urine WBC 22 H (0-5) /hpf Ur Squamous Epith Cells 4 (0-4) /hpf Urine Bacteria Occasional H (None) /hpf Urine Mucus Rare H (None) /hpf Urine HCG, Qual Not Detected (Not Detectd) - Radiology Data Radiology results: report reviewed, image reviewed Disposition Clinical Impression: Abdominal pain, UTI (urinary tract infection) Disposition: HOME SELF-CARE Instructions (If sedation given, give patient instructions): Abdominal Pain (ED) Additional Instructions: Return to the emergency department with any new, worsening, or concerning symptoms. Take the antibiotic as prescribed for 7 days. Alternate with i buprofen and Tylenol as needed for pain relief. Follow up with your primary care provider in 1-2 days. Prescriptions: Cephalexin [Keflex] 500 mg PO Q12HR 7 Days #14 cap Is patient prescribed a controlled substance at d/c from ED?: No Referrals: None,Stated [Primary Care Provider] - 1-2 days
[2023-01-10 21:26] LABS: Basophils % (A) 1 %; Eosinophils # (A) 0.1 k/uL (0-0.7); Eosinophils % (A) 2 %; HCT 36.3 % (34.0-46.0); HGB 12.2 gm/dL (11.4-16.0); Lymphocytes % (A) 54 %; MCHC 33.7 g/dL (31.0-37.0); MCV 94.9 fL (80.0-100.0); Mean Platelet Volume 7.9; Monocytes # (A) 0.3 k/uL (0-1.0); Monocytes % (A) 8 %; Neutrophils # (A) 1.2 k/uL (1.3-7.7); Neutrophils % (A) 33 %; Platelet Count 197 k/uL (150-450); RBC 3.83 m/uL (3.80-5.40); RDW 12.5 % (11.5-15.5); WBC 3.7 k/uL (3.8-10.6)
[2023-01-10 21:36] LABS: ALT 19 U/L (4-34); AST 17 U/L (14-36); African American GFR (CKD) >90 (>60 ml/min/1.73 sqM); Albumin 4.2 g/dL (3.5-5.0); Alkaline Phosphatase 68 U/L (38-126); Amylase 78 U/L (30-110); Anion Gap 6 mmol/L; Blood Urea Nitrogen 14 mg/dL (7-17); Calcium 9.6 mg/dL (8.4-10.2); Carbon Dioxide 29 mmol/L (22-30); Chloride 104 mmol/L (98-107); Glucose 106 mg/dL (74-99); Lipase 123 U/L (23-300); Non-African American GFR(CKD) >90 (>60 ml/min/1.73 sqM); Potassium 4.2 mmol/L (3.5-5.1); Sodium 139 mmol/L (137-145); Total Bilirubin 0.1 mg/dL (0.2-1.3); Total Protein 6.9 g/dL (6.3-8.2)
[2023-01-10 21:38] LABS: Appearance,Urine Cloudy (Clear); Bacteria,Urine Occasional /hpf; Bilirubin,Urine Negative (Negative); Blood,Urine Negative (Negative); Color,Urine Light Yellow; Glucose,Urine (UA) Negative (Negative); Ketones,Urine Negative (Negative); Leukocyte Esterase,Urine Large (Negative); Mucus,Urine Rare /hpf; Nitrite,Urine Negative (Negative); PH, Urine 6.5 (5.0-8.0); Protein,Urine Negative (Negative); RBC,Urine 5 /hpf (0-5); Specific Gravity,Urine 1.016 (1.001-1.035); Squamous Epithelial Cell,Urine 4 /hpf (0-4); Urobilinogen,Urine <2.0 mg/dL (<2.0); WBC,Urine 22 /hpf (0-5)
--- NOTE | 2023-01-10 21:56 | CT ---
EXAMINATION TYPE: CT abdomen pelvis w con DATE OF EXAM: 01/10/2023 HISTORY: RLQ abd pain CT DLP: 907.8mGycm Automated Exposure Control for Dose Reduction was Utilized. CONTRAST: CT scan of the abdomen and pelvis is performed with IV Contrast, patient injected with 100ml mL of Is ovue 300. COMPARISON: None. FINDINGS: LUNG BASES: No significant abnormality is appreciated. LIVER/GB: No significant abnormality is appreciated. PANCREAS: No significant abnormality is seen. SPLEEN: No significant abnormality is seen. ADRENALS: No significant abnormality is seen. KIDNEYS: No significant abnormality is seen. BOWEL: Normal-appearing appendix from the cecum. No suspicious small or large bowel dilatation. UTERUS/ADNEXA: Anteverted uterus. Central metallic IUD is high in position and extends or perforates the uterine margin towards the fundus. Left-sided pelvic phleboliths. LYMPH NODES: No greater than 1cm abdominal or pelvic lymph nodes are appreciated. OSSEOUS STRUCTURES: No significant abnormality is seen. OTHER: No significant additional abnormality is seen. IMPRESSION: No CT evidence for acute appendicitis. Metallic IUD perforates the uterus otherwise unrem arkable study.
[2023-01-10] MEDS ORDERED: cefTRIAXone IN SWFI 1,000 MG/10 ML SYRINGE IVP STA (22:04)
--- NOTE | 2023-01-10 22:46 | US ---
EXAMINATION TYPE: US transvaginal DATE OF EXAM: 01/10/2023 COMPARISON: CT: Earlier Today CLINICAL HISTORY: possible malpositioned IUD on CT, pelvic pain. RLQ pain, malposition of IUD TECHNIQUE: Transvaginal (TV). Date of LMP: 01/01/23 EXAM MEASUREMENTS: Uterus: 8.1 x 6.0 x 4.5 cm Endometrial Stripe: 0.46 cm Right Ovary: 2.8 x 2.1 x 2.0 cm Left Ovary: Not seen 1. Uterus: Anteverted wnl 2. Endometrium: wnl 3. Right Ovary: wnl 4. Left Ovary: Obscured by overlying bowel gas Spectral, color and waveform doppler imaging shows good arterial and venous flow within the ovaries ; 5. Bilateral Adnexa: wnl 6. Posterior cul-de-sac: Trace amount of fluid seen IUD appears malpositioned IMPRESSION: Malpositioned IUD is confirmed. Age is indeterminate likely not acute.
[2023-01-10] MEDS ORDERED: ONDANSETRON 4 MG ODT STARTER PACK 2 TAB BTL PO STA (23:01)
[2023-01-10] MEDS ORDERED: ACET/COD 300 MG/30 MG STARTER PACK 6 TAB BTL PO STA (23:01)
== END 2023-01-10 23:20 | disposition home or self-care (01) ==
LOC: EC 20:12
DX: N39.0 Urinary tract infection, site not specified (principal); Z91.048 Other nonmedicinal substance allergy status; Z87.891 Personal history of nicotine dependence
CPT/HCPCS: 36415; 80053; 82150; 83605; 83690; 85025; 81001; 81025; 87086; 93976; 76830; 74177; 99284; 96374; 96375; 96376; 96361; J2405; J0696; J1885; S0119; Q9967

== ENCOUNTER → 2023-04-10 | Outpatient (CLI) | payer MEDICAID, OTHER ==
--- NOTE | 2023-04-10 15:50 | US ---
EXAMINATION TYPE: US thyroid st tissue head/neck DATE OF EXAM: 04/10/2023 COMPARISON: EXAMINATION TYPE: US thyroid st tissue head/neck DATE OF EXAM: 04/10/2023 COMPARISON: NONE CLINICAL INDICATION: Female, 38 years old with history of R59.0 LOCALIZED ENLARGED LYMPH NODES; lump right neck. TECHNIQUE: FINDINGS: Scanned right neck submandibular area of lump. Hypoechoic area seen .7 x .5 x .4 cm. IMPRESSION: Small lymph node identified at the site of clinical concern.
== END | disposition home or self-care (01) ==
LOC: RADUSWWP 14:51
PROVIDERS: ATTEND Family Medicine
DX: R59.0 Localized enlarged lymph nodes (principal)
CPT/HCPCS: 76536

== ENCOUNTER → 2023-06-06 | Outpatient (CLI) | payer MEDICAID, OTHER ==
--- NOTE | 2023-06-18 00:21 | HM ---
HOLTER MONITOR REPORT The patient was monitored for 48 hours. CLINICAL INFORMATION: Baseline rhythm revealed a sinus mechanism with normal conduction. The average rate 72 beats per minute, minimum 54, maximum 132 beats per minute. Ventricular ectopic activity was present in the form of occasional single PVCs. Supraventricular ectopic activity was present in the form of rare single PACs. No diary was available. CONCLUSION: 1. Sinus mechanism baseline rhythm. 2. Occasional single PVCs. 3. Single PACs. 4. No diary was available. MMODL / IJN: [id number] /
== END | disposition home or self-care (01) ==
LOC: RADECHMAIN 06-03 07:59
PROVIDERS: ATTEND Family Medicine
DX: R00.2 Palpitations (principal); I49.3 Ventricular premature depolarization
CPT/HCPCS: 93225; 93226

== ENCOUNTER → 2025-03-23 | Outpatient (CLI) | payer MEDICAID, OTHER ==
--- NOTE | 2025-03-23 11:24 | USB ---
Reason for Exam: Clinical finding. Patient History: Menarche at age 13. First Full-Term at age 23. Maternal aunt had breast cancer. Risk Values: Evelia 5 year model risk: 0.4%. NCI Lifetime model risk: 10.0%. Technique: Method: Targeted. Findings: The upper outer quadrant of the left breast, the axilla of the left breast and the retroareolar of the left breast were scanned. Targeted ultrasound 1-2 o'clock left breast including scanning of the subareolar region and axilla. At the patient's 1 to 2:00 palpable site, focal dense tissue is demonstrated. No solid or cystic lesion or axillary adenopathy. Overall Assessment: Incomplete: need additional imaging evaluation, BI-RAD 0 Management: Diagnostic Mammogram of both breasts. [facility], , 03/23/2025 11:21 AM. Electronically signed and approved by: Montez Lopez M.D. Radiologist
--- NOTE | 2025-03-23 12:06 | MM ---
Reason for Exam: Clinical finding. Baseline mammogram. Indicated Problems: Palpable abnormality of the left side for 2 Month(s). Patient History: Menarche at age 13. First Full-Term at age 23. Premenopausal. Maternal aunt had breast cancer. Risk Values: Evelia 5 year model risk: 0.5%. NCI Lifetime model risk: 9.7%. Prior Study Comparison: Patient's first Mammogram. Tissue Density: The breasts are heterogeneously dense, which may obscure small masses. Findings: Analyzed By CAD. Palpable marker placed along the upper outer quadrant of the left breast. No underlying discrete abnormality is seen. However, in the right breast, there are grouped punctate calcifications central outer aspect at a middle depth which can be reassessed in 6 months. No other suspicious microcalcifications or other abnormality is seen. Overall Assessment: Probably benign, BI-RAD 3 Management: Diagnostic Mammogram of the right breast in 6 months. Further clinical management of any suspicious palpable abnormality. Results were given to the patient verbally at the time of exam. Patient should continue monthly self-breast exams. A clinical breast exam by your physician is recommended on an annual basis. This exam should not preclude additional follow-up of suspicious palpable abnormalities. Note on Evelia scores and lifetime risk: 1. A Evelia score greater than 3% is considered moderate risk. If this is the case, consider specialist referral to assess eligibility for a risk reducing agent. 2. If overall lifetime risk for the development of breast cancer is 20% or higher, the patient may qualify for future screening with alternating mammogram and breast MRI. [facility], , 03/23/2025 12:03 PM. Electronically signed and approved by: Montez Lopez M.D. Radiologist
== END | disposition home or self-care (01) ==
LOC: RADUSWWP 10:54
PROVIDERS: ATTEND Internal Medicine
DX: R92.333 Mammographic heterogeneous density, bilateral breasts (principal); N63.20 Unspecified lump in the left breast, unspecified quadrant; Z80.3 Family history of malignant neoplasm of breast
CPT/HCPCS: 77062; 77066